=== PATIENT | female | born 1985 | race Caucasian/White ===

== ENCOUNTER → 2022-08-03 12:49 | Outpatient (BNVA) | payer MEDICAID, SELFPAY | PROVIDERS: PCP Nurse Practitioner Family; Visit Provider Internal Medicine Rheumatology | DX: M05.9 Rheumatoid arthritis with rheumatoid factor, unspecified (principal) | CPT/HCPCS: 99212 ==

== ENCOUNTER → 2022-12-03 09:48 | Outpatient (BNVA) | payer OTHER, SELFPAY | PROVIDERS: PCP Nurse Practitioner Family; Visit Provider Internal Medicine Rheumatology | DX: M06.329 Rheumatoid nodule, unspecified elbow (principal); M05.9 Rheumatoid arthritis with rheumatoid factor, unspecified; Z79.60 Long term (current) use of unspecified immunomodulators and immunosuppressants | CPT/HCPCS: 99212 ==

== ENCOUNTER 2023-05-13 09:55 | Outpatient (AMB) | payer OTHER, SELFPAY ==
--- NOTE | 2023-05-13 09:56 | MHC.OFFVIS ---
Intake Vital Signs 05/13/23 09:57 Height 5 ft 5 in Weight 203 lb 4.259 oz BMI 33.8 BP 138/76 Blood Pressure Location Lt brachial Position Sitting Pulse 91 Pulse Source Pulse Oximeter Pulse Oximetry (%) 100 Oxygen Delivery Method Room Air Intake Visit Reasons: rheum Intake Note: Patient presents today to follow up on RA. Mica Patcher Required: No Accompanied by: Self / Same As Patient Allergies spironolactone Allergy (Severe, Verified 05/13/23 10:08) kidney failure diphenhydramine [From Benadryl] Allergy (Intermediate, Verified 05/13/23 10:08) sinus headaches caffeine [From Cafergot] Allergy (Unknown, Verified 05/13/23 10:08) Unknown ergotamine [From Cafergot] Allergy (Unknown, Verified 05/13/23 10:08) Unknown latex Adverse Reaction (Intermediate, Verified 05/13/23 10:08) Unknown nortriptyline Adverse Reaction (Intermediate, Verified 05/13/23 10:08) Unknown Oral allergy syndrome Adverse Reaction (Unknown, Uncoded 12/03/22 10:08) Itching Medication List - Last Reconciled 05/13/23 by Luis Frank MD dextroamphetamine-amphetamine 15 mg ER (Adderall XR) 1 cap PO QAM epinephrine IM etanercept (Enbrel SureClick) 50 mg subcut QWEEK naproxen sodium (Aleve) 220 - 440 mg PO BID PRN HPI HPI Comments History of Present Illness Details The patient returns for evaluation of her rheumatoid arthritis. She remains on Enbrel 50 mg weekly. In general this has been doing fairly well to control her symptoms. She does note occasional pain in the wrists when she uses her hands vigorously. She has been having some catching and pain along the right 3rd finger flexor tendon. Earlier this fall she had removal of a painful rheumatoid nodule from the right olecranon region. That has healed up fairly well with a small keloid but it is not painful anymore. There has been some popping and pain over the left TMJ. She has been told in the past she had a ear infection but does note that the pain is intermittent even when the ear exam has looked okay. She continues full-time work at the [employer] [facility]. Occasionally she takes naproxen for pain but in general does not need it. 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 Endo Details: Negative for polyuria and polydypsia Jimmie/Lymph Details: Negative for excessive bruising or bleeding. Physical Exam Vital Signs: Last Vital Signs Pulse 91 05/13/23 09:57 BP 138/76 05/13/23 09:57 Pulse Ox 100 05/13/23 09:57 Oxygen Delivery Method Room Air 05/13/23 09:57 BMI result Body Mass Index 33.8 APPEARANCE: Patient in no acute distress EYES no redness, pupils equal and reactive to light, eyelids normal EXTREMITIES: No edema, no calf tenderness, normal peripheral pulses. JOINT EXAM: Cervical Spine:.? Full range of motion without pain; no tenderness. There is tenderness at the left TMJ. The ear canal and drum are not red so this is likely some irritation at the TMJ. Given the lack of inflammatory symptoms elsewhere this is probably some secondary degenerative change. I think she should follow-up with her dentist about potential treatment for that. Injection or arthroplasty are usually handled through an oral or dental surgeon. Thoracic Spine:.? No scoliosis.? No tenderness on palpation. Lumbar Spine:.? Alignment normal.? Full range of motion with mild discomfort.? No tenderness. Chest Wall:? No tenderness, swelling, increased warmth or erythema. Hands:? Right:? There is mild swelling at the 1st 3 MCPs; the 3rd MCP is slightly tender. There is some nontender thickening at the 2nd and 3rd PIP joints.? There is some thickening, tenderness, and triggering along the 3rd flexor tendon. Elsewhere there is no tendon triggering or tenderness.? No thenar atrophy or sensory loss.? Left:? Mild swelling without tenderness at the 1st, 2nd, and 5th MCP.? Other joints do not seem to have any swelling or tenderness. Wrists:? Right:? She flexes 60 degrees and extends 45 degrees at the wrist but has some mild pain with that motion.? No tenderness or swelling.? There is also pain with attempts at full supination and pronation.? She lacks about 40 degrees of full pronation.? Left:? Mild pain with flexion extension at 45 degrees with some slight tenderness but no swelling.? This wrist also lacks about 45 degrees/of supination pronation. Elbows:.? Right:? Range of motion seems to be intact and pain-free.? There is a well-healed scar with some prominence to it over the bursa. It is not tender, red, or fluctuant. There is no tenderness over the joint space. Left:? Normal pain-free range of motion without tenderness, swelling, increased warmth or erythema. Shoulders:.?? Full range of motion with mild discomfort at the extremes of full rotation.? No adenopathy, tenderness, weakness, swelling, increased warmth or erythema. Hips:.? Full range of motion without pain. Hip bursa:.? No tenderness. Knees:.? ? Mild patellofemoral crepitus pain-free range of motion.? There is some minimal medial compartment tenderness without redness or swelling.?? Ankles:.? Normal pain-free range of motion without tenderness, swelling, increased warmth or erythema. Feet:.? Left:? Some pes planus deformity and some valgus deformity.? Slight tenderness in the lateral instep without swelling. There is no tenderness in the MTP or toe regions. swelling.? Right:? Normal pain-free range of motion without tenderness, swelling, increased warmth or erythema. Tender points:.? No tenderness to digital palpation at the occiput, trapezius, second rib, lateral epicondyle, knees, greater trochanter and gluteal area bilaterally. ? ? Results Reviewed Results Reviewed: 05/03/2023: Hemoglobin 11.1, white count 9.3 Assessment & Plan Assessment & Plan (1) Flexor tenosynovitis of finger: Code(s): M65.9 - Synovitis and tenosynovitis, unspecified (2) Long-term use of immunosuppressant medication: Code(s): Z79.60 - it service technician (current) use of unspecified immunomodulators and immunosuppressants (3) Seropositive rheumatoid arthritis: Comment: Diagnosed as child at [facility]; RF, CCP, CARLOS all positive. Rx with methotrexate and cyclosporin: not that helpful. Rx with Enbrel (1998) age [age], did better. then off due to . Brief courses of Enbrel 2009 and 2013. She stopped on her own because she felt better. 09/2017: erosive disease in wrists and feet on xray - Enbrel restarted Code(s): M05.9 - Rheumatoid arthritis with rheumatoid factor, unspecified Plan Rheumatoid arthritis with some limited motion in a few joints consistent with longstanding and destructive disease. In general however she is pretty comfortable with current regimen. However there is some flexor tenosynovitis that is quite symptomatic at the right 3rd finger. I told her this could be surgically treated or injected but I would prefer surgical treatment given her longstanding rheumatoid disease that may give her more definitive treatment. She had a good response to the olecranon bursa rheumatoid nodule removal. She is referred to [facility] to deal with the finger. Her ear canal and drum are not red so this ear pain is likely some irritation at the TMJ. Given the lack of inflammatory symptoms elsewhere this is probably some secondary degenerative change. I think she should follow-up with her dentist about potential treatment for that. Injection or arthroplasty are usually handled through an oral or dental surgeon. She will continue with the Enbrel as above and we will see her back in about 6 months. Orders: Referrals Orthopedics Referral M65.9 - Synovitis and tenosynovitis, unspecified Coding Level of Care Code Est Pt Level 3 (51433) Diagnoses Flexor tenosynovitis of finger M65.9 Long-term use of immunosuppressant medication Z79.60 Seropositive rheumatoid arthritis M05.9
[2023-05-13 09:57] VITALS: BP 138/76; PULSE 91; O2SAT 100; BMI 33.8
== END 2023-05-13 10:53 | disposition home or self-care (01) ==
PROVIDERS: PCP Nurse Practitioner Family; Visit Provider Internal Medicine Rheumatology
DX: M05.79 Rheumatoid arthritis with rheumatoid factor of multiple sites without organ or systems involvement (principal); M65.9 Synovitis and tenosynovitis, unspecified; Z79.60 Long term (current) use of unspecified immunomodulators and immunosuppressants
CPT/HCPCS: 99213

== ENCOUNTER → 2023-05-13 09:55 | Outpatient (BNVA) | payer OTHER, SELFPAY | PROVIDERS: PCP Nurse Practitioner Family; Visit Provider Internal Medicine Rheumatology | DX: M05.9 Rheumatoid arthritis with rheumatoid factor, unspecified (principal); M65.9 Synovitis and tenosynovitis, unspecified; Z79.60 Long term (current) use of unspecified immunomodulators and immunosuppressants | CPT/HCPCS: 99212 ==

== ENCOUNTER 2023-11-15 07:45 | Outpatient (AMB) | payer OTHER, SELFPAY ==
--- NOTE | 2023-11-15 07:47 | A.OFFVIS_ITS ---
Vital Signs 11/15/23 07:48 Height 5 ft 5 in Weight 206 lb 5.643 oz BMI 34.3 BP 124/80 Blood Pressure Location Rt brachial Position Sitting Pulse 89 Pulse Source Pulse Oximeter Pulse Oximetry (%) 100 Intake Visit Reasons: RA Intake Note: Patient last seen 05/13/[address] Frank, presents today for follow up and test results. Allergies spironolactone Allergy (Severe, Verified 11/15/23 07:50) kidney failure diphenhydramine [From Benadryl] Allergy (Intermediate, Verified 11/15/23 07:50) sinus headaches caffeine [From Cafergot] Allergy (Unknown, Verified 11/15/23 07:50) Unknown ergotamine [From Cafergot] Allergy (Unknown, Verified 11/15/23 07:50) Unknown latex Adverse Reaction (Intermediate, Verified 11/15/23 07:50) Unknown nortriptyline Adverse Reaction (Intermediate, Verified 11/15/23 07:50) Unknown Oral allergy syndrome Adverse Reaction (Unknown, Uncoded 11/15/23 07:50) Itching Medication List - Last Reconciled 11/15/23 by Alecia Leyva MD dextroamphetamine-amphetamine 15 mg ER (Adderall XR) 1 cap PO QAM Enbrel SureClick (etanercept) 50 mg subcut QWEEK NS epinephrine IM naproxen sodium (Aleve) 220 - 440 mg PO BID PRN HPI Comments Details: 38-year-old female with deforming RA returns for follow-up. She remains on Enbrel weekly. She states that she is getting more pains recently. She feels that the Enbrel is not as effective as it used to be. 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 She has pain in her hands, she also gets significant pain after running or walking for some time. She states that her pains are about 80% better when she has not working. She takes ibuprofen 100 mg Twice daily daily. Has not had any recent infections. She uses a mask at work. Most recent visit by Dr. Frank 04/2024: The patient returns for evaluation of her rheumatoid arthritis. She remains on Enbrel 50 mg weekly. In general this has been doing fairly well to control her symptoms. She does note occasional pain in the wrists when she uses her hands vigorously. She has been having some catching and pain along the right 3rd finger flexor tendon. Earlier this fall she had removal of a painful rheumatoid nodule from the right olecranon region. That has healed up fairly well with a small keloid but it is not painful anymore. There has been some popping and pain over the left TMJ. She has been told in the past she had a ear infection but does note that the pain is intermittent even when the ear exam has looked okay. She continues full-time work at the [employer] [facility]. Occasionally she takes naproxen for pain but in general does not need it. 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[facility] [place] Reports arthralgias, Reports joint swelling and Reports stiffness Physical Exam Vital Signs: Last Vital Signs Pulse 89 11/15/23 07:48 BP 124/80 11/15/23 07:48 Pulse Ox 100 11/15/23 07:48 BMI result Body Mass Index 34.3 Const General: cooperative, healthy appearing and comfortable Nutritional Appearance: obese Orientation/consciousness: patient oriented x3 Limitations: no limitations HEENT Head: Yes normocephalic and Yes atraumatic Mouth: moist mucous membranes Resp Effort & Inspection: normal respiratory effort and able to speak in complete sentences Auscultation: clear to auscultation bilaterally Cardio Rate: regular rate Rhythm: regular rhythm Skin General skin exam: no rashes or lesions noted Neuro General: patient oriented x3 Extrem Other: Hands:? Right:? There is mild swelling at the 1st 3 MCPs; the 3rd MCPs slightly tender. There is some nontender thickening at the 2nd and 3rd PIP joints.? There is some thickening, tenderness, and triggering along the 3rd flexor tendon. Elsewhere there is no tendon triggering or tenderness.? No thenar atrophy or sensory loss.? Left:? Mild swelling without tenderness at the 1st, 2nd, and 5th MCP.? Other joints do not seem to have any swelling or tenderness. Wrists:? Right:? She flexes 60 degrees and extends 45 degrees at the wrist but has some mild pain with that motion.? No tenderness or swelling.? There is also pain with attempts at full supination and pronation.? She lacks about 40 degrees of full pronation.? Left:? Mild pain with flexion extension at 45 degrees with some slight tenderness but no swelling.? This wrist also lacks about 45 degrees/of supination pronation. Elbows:.? Right:? Range of motion seems to be intact and pain-free.? There is a well-healed scar with some prominence to it over the bursa. It is not tender, red, or fluctuant. There is no tenderness over the joint space. There seems to be a rheumatoid nodule Left:? Normal pain-free range of motion without tenderness, swelling, increased warmth or erythema. Knees without warmth erythema or swelling No knee pain with full flexion and extension Assessment & Plan Assessment & Plan (1) Seropositive rheumatoid arthritis: Comment: Diagnosed as child at [facility]; RF, CCP, CARLOS all positive. Rx with methotrexate and cyclosporin: not that helpful. Rx with Enbrel (1998) age [age], did better. then off due to . Brief courses of Enbrel 2009 and 2013. She stopped on her own because she felt better. 09/2017: erosive disease in wrists and feet on xray - Enbrel restarted Code(s): M05.9 - Rheumatoid arthritis with rheumatoid factor, unspecified Category: Medical Plan: This is a 38-year-old female with seropositive deforming RA who presents for follow-up. This is her 1st visit with me she used to follow-up with Dr. Frank. Patient is complaining of multiple joint pains that are needed to activity. She is using ibuprofen 400 mg Twice daily Patient already has deforming disease and this can predispose her to arthritic pains with activity. Versus active inflammatory arthritis. Continue with Enbrel Re-evaluate in 3 months. Labs before next visit (2) Long-term use of immunosuppressant medication: Code(s): Z79.60 - FPC (current) use of unspecified immunomodulators and immunosuppressants Category: Medical Plan: No recent infections. Will check T spot, hepatitis panel before next visit Plan I spent 26 minutes reviewing patient's chart, evaluating patient, ordering diagnostic workup, counseling patient and documenting in the chart Coding Level of Care Code Est Pt Level 4 (35015) Diagnoses Seropositive rheumatoid arthritis M05.9 Long-term use of immunosuppressant medication Z79.60
[2023-11-15 07:48] VITALS: BP 124/80; PULSE 89; O2SAT 100; BMI 34.3
== END 2023-11-15 08:11 | disposition home or self-care (01) ==
PROVIDERS: PCP Nurse Practitioner Family; Visit Provider Student in an Organized Health Care Education/Training Program
DX: M05.79 Rheumatoid arthritis with rheumatoid factor of multiple sites without organ or systems involvement (principal); Z79.60 Long term (current) use of unspecified immunomodulators and immunosuppressants
CPT/HCPCS: 99214

== ENCOUNTER → 2023-11-15 07:45 | Outpatient (BNVA) | payer OTHER, SELFPAY | PROVIDERS: PCP Nurse Practitioner Family; Visit Provider Student in an Organized Health Care Education/Training Program | DX: M05.9 Rheumatoid arthritis with rheumatoid factor, unspecified (principal); Z79.60 Long term (current) use of unspecified immunomodulators and immunosuppressants | CPT/HCPCS: 99212 ==

== ENCOUNTER 2024-02-15 08:12 | Outpatient (AMB) | payer OTHER, SELFPAY ==
--- NOTE | 2024-02-15 08:20 | MHC.OFFVIS ---
Vital Signs 02/15/24 08:22 Height 5 ft 5 in Weight 200 lb 9.93 oz BMI 33.4 BP 124/72 Blood Pressure Location Rt brachial Position Sitting Pulse 85 Pulse Source Pulse Oximeter Pulse Oximetry (%) 100 Oxygen Delivery Method Room Air Intake Visit Reasons: RA Intake Note: Patient presents for RA. Allergies spironolactone Allergy (Severe, Verified 02/15/24 08:23) kidney failure diphenhydramine [From Benadryl] Allergy (Intermediate, Verified 02/15/24 08:23) sinus headaches caffeine [From Cafergot] Allergy (Unknown, Verified 02/15/24 08:23) Unknown ergotamine [From Cafergot] Allergy (Unknown, Verified 02/15/24 08:23) Unknown latex Adverse Reaction (Intermediate, Verified 02/15/24 08:23) Unknown nortriptyline Adverse Reaction (Intermediate, Verified 02/15/24 08:23) Unknown Oral allergy syndrome Adverse Reaction (Unknown, Uncoded 11/15/23 07:50) Itching Medication List - Last Reconciled 02/15/24 by Alecia Leyva MD dextroamphetamine-amphetamine 15 mg ER (Adderall XR) 1 cap PO QAM Enbrel SureClick (etanercept) 50 mg subcut QWEEK NS epinephrine IM naproxen sodium (Aleve) 220 - 440 mg PO BID PRN HPI Comments Details: 38-year-old female with seropositive deforming RA returns for follow-up. She remains on Enbrel weekly. She states that her joints have been doing reasonably well. She has noticed some tingling and numbness on the outer aspect of her left elbow that travels to the ulnar aspect of her hand. She states that her left 5th finger gets stuck. She has difficulty drawing blood. 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 Most recent visit by Dr. Frank 04/2024: The patient returns for evaluation of her rheumatoid arthritis. She remains on Enbrel 50 mg weekly. In general this has been doing fairly well to control her symptoms. She does note occasional pain in the wrists when she uses her hands vigorously. She has been having some catching and pain along the right 3rd finger flexor tendon. Earlier this fall she had removal of a painful rheumatoid nodule from the right olecranon region. That has healed up fairly well with a small keloid but it is not painful anymore. There has been some popping and pain over the left TMJ. She has been told in the past she had a ear infection but does note that the pain is intermittent even when the ear exam has looked okay. She continues full-time work at the [employer] [facility]. Occasionally she takes naproxen for pain but in general does not need it. 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 of motion, Reports radiating pain into limb and Reports stiffness Physical Exam Vital Signs: Last Vital Signs Pulse 85 02/15/24 08:22 BP 124/72 02/15/24 08:22 Pulse Ox 100 02/15/24 08:22 Oxygen Delivery Method Room Air 02/15/24 08:22 BMI result Body Mass Index 33.4 Const General: cooperative, healthy appearing and comfortable Nutritional Appearance: obese Orientation/consciousness: patient oriented x3 Limitations: no limitations HEENT Head: Yes normocephalic and Yes atraumatic Mouth: moist mucous membranes Resp Effort & Inspection: normal respiratory effort and able to speak in complete sentences Auscultation: clear to auscultation bilaterally Cardio Rate: regular rate Rhythm: regular rhythm Skin General skin exam: no rashes or lesions noted Neuro General: patient oriented x3 Extrem Other: Hands:? Right:? There is synovial thickening at the 1st 3 MCP joints. There is some nontender thickening at the 2nd and 3rd PIP joints.? Elsewhere there is no tendon triggering or tenderness.? No thenar atrophy or sensory loss.? Left:? Synovial thickening at multiple MCP joints Left index finger triggering Wrists: Reduced range of motion of both wrists Soft tissue prominence at the right elbow, likely a rheumatoid nodule Knees without warmth erythema or swelling No knee pain with full flexion and extension Office Procedures Tendon Injection Tendon Injection Details: With patient's consent, The palm of the left hand was prepped with ChloraPrep and alcohol. Under topical ethyl chloride spray the [2nd] flexor tendon sheath was injected with 20 mg of triamcinolone and 0.2 cc of 1% lidocaine. The patient tolerated the procedure without any acute complications. [id number] Tendon Sheath Injection All charges added?: Procedure code (CPT) selection complete Assessment & Plan Assessment & Plan (1) Seropositive rheumatoid arthritis: Comment: Diagnosed as child at [facility];+++ RF+++ CCP+++CARLOS all positive. Rx with methotrexate and cyclosporin: not that helpful. Rx with Enbrel (1998) age [age], did better. then off due to . Brief courses of Enbrel 2009 and 2013. She stopped on her own because she felt better. 09/2017: erosive disease in wrists and feet on xray - Enbrel restarted Code(s): M05.9 - Rheumatoid arthritis with rheumatoid factor, unspecified Category: Medical Plan: This is a 38-year-old female with seropositive deforming RA who presents for follow-up. She remains on Enbrel weekly. She does not have any active synovitis on exam. Continue Enbrel 50 mg once weekly Labs today. Follow-up in 4 months (2) Long-term use of immunosuppressant medication: Code(s): Z79.60 - penitentiary (current) use of unspecified immunomodulators and immunosuppressants Category: Medical Plan: No recent infections. Will check T spot, hepatitis panel (3) Flexor tenosynovitis of finger: Code(s): M65.9 - Synovitis and tenosynovitis, unspecified Category: Medical Plan: History of right 3rd trigger finger, was injected multiple times, initially injections were helpful then stopped helping, eventually she required surgery Similar symptoms now occurring in the left index. It was injected in clinic today. Advised patient to wear a Band-Aid on the PIP joint at night (4) Paresthesia of left upper limb: Code(s): R20.2 - Paresthesia of skin Category: Medical Plan: Symptoms suggestive of left cubital tunnel syndrome. Will order EMG/NCV of both upper extremities Plan I spent 46 minutes reviewing patient's chart, evaluating patient, ordering diagnostic workup, counseling patient and documenting in the chart Orders: Orders NE electromyogram (EMG) Today R20.2 - Paresthesia of skin AMB Tendon Injection Today M65.9 - Synovitis and tenosynovitis, unspecified Medications: Refilled Enbrel SureClick (etanercept) 50 mg subcut QWEEK 4 mL 5RF NS M05.9 - Rheumatoid arthritis with rheumatoid factor, unspecified Coding Level of Care Code Est Pt Level 5 (23211) Diagnoses Seropositive rheumatoid arthritis M05.9 Long-term use of immunosuppressant medication Z79.60 Flexor tenosynovitis of finger M65.9 Paresthesia of left upper limb R20.2 CPT Codes Tendon Injection - Tendon Injection 1: [id number] Tendon Sheath Injection ([id number])
[2024-02-15 08:22] VITALS: BP 124/72; PULSE 85; O2SAT 100; BMI 33.4
== END 2024-02-15 08:47 | disposition home or self-care (01) ==
PROVIDERS: PCP Nurse Practitioner Family; Visit Provider Student in an Organized Health Care Education/Training Program
DX: M05.79 Rheumatoid arthritis with rheumatoid factor of multiple sites without organ or systems involvement (principal); Z79.60 Long term (current) use of unspecified immunomodulators and immunosuppressants; M65.9 Synovitis and tenosynovitis, unspecified; R20.2 Paresthesia of skin; M65.322 Trigger finger, left index finger
CPT/HCPCS: 20550; 99215

== ENCOUNTER → 2024-02-15 08:12 | Outpatient (BNVA) | payer OTHER, SELFPAY | PROVIDERS: PCP Nurse Practitioner Family; Visit Provider Student in an Organized Health Care Education/Training Program | DX: M05.9 Rheumatoid arthritis with rheumatoid factor, unspecified (principal); M65.9 Synovitis and tenosynovitis, unspecified; R20.2 Paresthesia of skin; Z79.60 Long term (current) use of unspecified immunomodulators and immunosuppressants | CPT/HCPCS: 20550; 99212 ==

== ENCOUNTER 2024-02-15 08:51 | Outpatient (REF) | payer OTHER, SELFPAY ==
[2024-02-15 11:01] LABS: MANUAL DIFF FLAG NO
[2024-02-15 11:03] LABS: Basophils Percent Auto 0.3 % (0-2); Eosinophils Absolute Auto 0.1 X10*3/uL (0.0-0.4); Eosinophils Percent Auto 1.3 % (0-4); Hematocrit 38.6 % (37.0-47.0); Hemoglobin 11.9 g/dl (12.0-16.0); Imm Gran Abs Auto 0.01 X10*3/uL (0.00-0.03); Imm Gran Pct Auto 0.1 % (0.0-0.4); Lymphocytes Absolute Auto 1.5 X10*3/uL (1.2-4.9); Lymphocytes Percent Auto 21.8 % (20-40); Mean Corpuscular HGB Conc 30.8 g/dl (31.0-35.0); Mean Corpuscular Hemoglobin 23.9 pg (27.0-33.0); Mean Corpuscular Volume 77.5 fL (80.0-98.0); Monocytes Absolute Auto 0.5 X10*3/uL (0.1-1.2); Monocytes Percent Auto 6.8 % (2-11); Neutrophils Absolute Auto 4.7 x10*3/uL (2.0-8.3); Neutrophils Percent Auto 69.7 % (45-73); Platelet Count 289 X10*3/uL (160-400); Red Blood Count 4.98 X10*6/uL (4.20-5.50); Red Cell Distribution Width 16.1 % (11.0-16.0); White Blood Count 6.8 X10*3/uL (4.8-10.8)
[2024-02-15 11:21] LABS: Alanine Aminotransferase 15 U/L (0-31); Albumin Level 4.1 g/dL (3.5-5.0); Alkaline Phosphatase 58 U/L (39-117); Anion Gap 11 (12-20); Aspartate Amino Transferase 17 U/L (5-31); Bilirubin Total 0.5 mg/dL (0.0-1.0); Blood Urea Nitrogen 13 mg/dL (9-16); C Reactive Protein 0.37 mg/dL (< or = 0.50); Calcium 9.6 mg/dL (8.4-10.2); Carbon Dioxide 25 mmol/L (22-29); Chloride 108 mmol/L (96-108); Estimated Glomerular Filt Rate > 60; Glucose Random 100 mg/dL (60-115); Potassium 4.2 mmol/L (3.3-5.1); Sodium 140 mmol/L (135-145); Total Protein 7.5 g/dL (6.5-8.0)
[2024-02-15 11:41] LABS: HBS Num1 120.64 mIU/mL (0-7.99); HBc Num1 0.16 S/CO (0.00-0.79); HBsAGNum1 0.27 S/CO (0.00-0.99); Hepatitis B Core Antibody Nonreactive (Nonreactive); Hepatitis B Surface Antigen Negative (Negative); ~Hepatitis A Antibody IgM Nonreactive (Nonreactive); ~Hepatitis B Surface Antibody REACTIVE (Nonreactive); ~Hepatitis C Antibody Nonreactive (Nonreactive)
[2024-02-15 11:44] LABS: Erythrocyte Sedimentation Rate 25 MM/HR (0-20)
[2024-02-18 00:49] LABS: TS Negative Control Passed; TS Panel A 0; TS Panel B 0; TS Positive Control Passed; TSpotTB Negative (Negative)
== END 2024-02-15 08:52 | disposition home or self-care (01) ==
LOC: HO.10HDL 08:51
PROVIDERS: Visit Provider Student in an Organized Health Care Education/Training Program
DX: Z11.59 Encounter for screening for other viral diseases (principal); M05.9 Rheumatoid arthritis with rheumatoid factor, unspecified; R76.11 Nonspecific reaction to tuberculin skin test without active tuberculosis
CPT/HCPCS: 36415; 80053; 85025; 85652; 86140; 86481; 86704; 86706; 86709; 86803; 87340

== ENCOUNTER 2024-03-02 13:52 | Outpatient (REF) | payer OTHER, SELFPAY ==
--- NOTE | 2024-03-02 | EMG_ITS ---
Chief complaint: Left 4th and 5th digit numbness/tingling/pain especially when bending the left elbow. Milder symptoms on right but similar. History of RA. Reason for referral: Evaluate for ulnar neuropathy Referred by: Dr. Leyva Procedure done: Bilateral upper extremities NCS/EMG Precautions and/or limitations: None The limb temperature was monitored continuously and remained between 32-36 degrees C during the performance of the NCS. Nerve Conduction Studies Anti Sensory Summary Table ?Stim Site NR Onset (ms) Norm Onset (ms) Peak (ms) Norm Peak (ms) O-P Amp (?V) Norm O-P Amp Site1 Site2 Delta-0 (ms) Dist (cm) Roque (m/s) Norm Roque (m/s) Left Median Anti Sensory (2nd Digit) Wrist ? 2.2 2.8 <3.6 71.4 >10 Wrist 2nd Digit 2.2 14.0 64 Right Median Anti Sensory (2nd Digit) Wrist ? 2.1 2.7 <3.6 82.5 >10 Wrist 2nd Digit 2.1 14.0 67 Left Radial Anti Sensory (Thumb) Forearm ? 1.6 1.9 <3.1 20.5 Forearm Thumb 1.6 0.0 Left Ulnar Anti Sensory (5th Digit) Wrist ? 2.1 2.7 <3.7 58.4 >15.0 Wrist 5th Digit 2.1 14.0 67 Right Ulnar Anti Sensory (5th Digit) Wrist ? 2.1 2.8 <3.7 48.1 >15.0 Wrist 5th Digit 2.1 14.0 67 Motor Summary Table ?Stim Site NR Onset (ms) Norm Onset (ms) O-P Amp (mV) Norm O-P Amp iAmp (mV) Amp (1st) (%) Site1 Site2 Delta-0 (ms) Dist (cm) Roque (m/s) Norm Roque (m/s) Left Median Motor (Abd Poll Brev) Wrist ? 3.0 <3.9 10.2 >4.5 11.9 100.0 Elbow Wrist 3.7 20.0 54 >45 Elbow ? 6.7 10.3 12.0 101.0 Right Median Motor (Abd Poll Brev) Wrist ? 3.0 <3.9 8.8 >4.5 10.5 100.0 Elbow Wrist 3.4 20.0 59 >45 Elbow ? 6.4 8.8 10.6 100.0 Left Ulnar Motor (Abd Dig Minimi) Wrist ? 2.5 <3.0 7.6 >5 8.8 100.0 B Elbow Wrist 2.7 16.5 61 >45 B Elbow ? 5.2 5.7 7.0 75.0 A Elbow B Elbow 1.5 10.0 67 >45 A Elbow ? 6.7 5.6 6.9 73.7 Right Ulnar Motor (Abd Dig Minimi) Wrist ? 2.6 <3.0 8.6 >5 10.6 100.0 B Elbow Wrist 2.9 18.5 64 >45 B Elbow ? 5.5 6.2 8.1 72.1 A Elbow B Elbow 1.7 10.0 59 >45 A Elbow ? 7.2 6.1 8.1 70.9 EMG ?Side Muscle Nerve Root Ins Act Fibs Psw Amp Dur Poly Recrt Int Pat Comment Right 1stDorInt Ulnar C8-T1 Nml Nml Nml Nml Nml 0 Nml Complete Right FlexCarRad Median C6-7 Nml Nml Nml Nml Nml 0 Nml Complete Right Biceps Musculocut C5-6 Nml Nml Nml Nml Nml 0 Nml Complete Right Triceps Radial C6-7-8 Nml Nml Nml Nml Nml 0 Nml Complete Right Deltoid Axillary C5-6 Nml Nml Nml Nml Nml 0 Nml Complete Left 1stDorInt Ulnar C8-T1 Nml Nml Nml Nml Nml 0 Nml Complete Left FlexCarRad Median C6-7 Nml Nml Nml Nml Nml 0 Nml Complete Left Biceps Musculocut C5-6 Nml Nml Nml Nml Nml 0 Nml Complete Left Triceps Radial C6-7-8 Nml Nml Nml Nml Nml 0 Nml Complete Left Deltoid Axillary C5-6 Nml Nml Nml Nml Nml 0 Nml Complete FINDINGS: All motor and sensory nerves tested showed normal latencies, amplitudes and conduction velocities. Concentric needle EMG was performed in selected muscles of the bilateral upper extremities. Study did not reveal signs of electric abnormalities as shown in the table above. IMPRESSION: 1. This is a normal study. 2. There is no electrodiagnostic evidence for median neuropathy, ulnar neuropathy, brachial plexopathy, or cervical radiculopathy. Thank you for your kind referral. Roxanna Springer MD, KALYANI Board Certified, [place] [employer] and [employer] (ABPMR) Board Certified, [place] [employer] Electro[employer]ostic [employer] (ABEM) CODIN [phone] MTDD
== END 2024-03-02 13:53 | disposition home or self-care (01) ==
LOC: HO.NEURO 13:52
PROVIDERS: PCP Internal Medicine; Visit Provider Student in an Organized Health Care Education/Training Program
DX: R20.2 Paresthesia of skin (principal)
CPT/HCPCS: 95886; 95911

== ENCOUNTER → 2024-03-02 13:55 | Outpatient (BNV) | payer OTHER, SELFPAY | PROVIDERS: PCP Internal Medicine; Visit Provider Physical Medicine & Rehabilitation | DX: R20.0 Anesthesia of skin (principal); R20.2 Paresthesia of skin | CPT/HCPCS: 95886; 95911 ==

== ENCOUNTER 2024-06-20 09:14 | Outpatient (AMB) | payer OTHER, SELFPAY ==
--- NOTE | 2024-06-20 09:22 | MHC.OFFVIS ---
Vital Signs 06/20/24 09:24 06/20/24 09:26 Height 5 ft 5 in Weight 204 lb 5.896 oz 204 lb 5.896 oz BMI 34.0 BP 124/90 H Blood Pressure Location Lt brachial Pulse 97 Pulse Source Pulse Oximeter Pulse Oximetry (%) 98 Oxygen Delivery Method Room Air Intake Visit Reasons: RA Intake Note: Patient presents for RA. Allergies spironolactone Allergy (Severe, Verified 06/20/24 09:25) kidney failure diphenhydramine [From Benadryl] Allergy (Intermediate, Verified 06/20/24 09:25) sinus headaches caffeine [From Cafergot] Allergy (Unknown, Verified 06/20/24 09:25) Unknown ergotamine [From Cafergot] Allergy (Unknown, Verified 06/20/24:) Unknown latex Adverse Reaction (Intermediate, Verified 06/20/24 09:25) Unknown nortriptyline Adverse Reaction (Intermediate, Verified 06/20/24 09:25) Unknown Oral allergy syndrome Adverse Reaction (Unknown, Uncoded 11/15/23 07:50) Itching Medication List - Last Reconciled 06/20/24 by Gabbi Montoya MD dextroamphetamine-amphetamine 15 mg ER (Adderall XR) 1 cap PO QAM Enbrel SureClick (etanercept) 50 mg subcut QWEEK NS epinephrine IM naproxen sodium (Aleve) 220 - 440 mg PO BID PRN HPI Comments Details: Patient is a 39-year-old female with ADHD, asthma and seropositive erosive nodular rheumatoid arthritis here today for follow up Interval History: Patient last seen 02/15/[address] Leyva. At that time she remain on Enbrel weekly and reported her joints were doing reasonably well. She also had recurrent right 3rd trigger finger that was injected at that visit. Also complained of cubital tunnel syndrome symptoms and was sent to do an EMG of both upper extremities. Today, Reports she is doing well Trigger finger improved after injection No prolonged AM stiffness Rheumatologic History: Diagnosed as child at [facility];+++ RF+++ CCP+++CARLOS all positive. Rx with methotrexate and cyclosporin: not that helpful. Rx with Enbrel (1998) age 16-20, did better. then off due to . Brief courses of Enbrel 2009 and 2013. She stopped on her own because she felt better. 09/2017: erosive disease in wrists and feet on xray - Enbrel restarted Current Rheumatology Medication(s): Enbrel 50mg SC weekly [facility] Medical History Asthma Migraine Cervical cancer Nephrolithiasis Obstructive sleep apnea Obesity Cough Surgical History History of lymph node excision Family History Mother Fibromyalgia Hypertension Rheumatoid arthritis Lupus Diabetes Thyroid disease Glaucoma Father Gout Maternal Grandmother Cancer Diabetes Hypertension Myocardial infarct Social History Household Members: None Alcohol intake: current Patient Tobacco Use Status: Never used Tobacco Current occupational status: employed 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 [employer] Review of Systems Const Details: Review of Systems Constitutional: Denies fever, chills, weight loss ENT: Denies vision changes, eye pain or eye redness, dental caries, dry mouth GI: Denies nausea, vomiting, diarrhea, abdominal pain, change in BM Pulm: Denies SOB, HUTCHINS, hemoptysis, wheezing Cards: Denies chest pain, palpitations Skin: Denies Raynaud's, rash, nail changes, photosensitivity, [employer] ASSOC[employer]ATE: Denies headaches, weakness, paresthesias, recurrent falls MSK: as per HPI All other systems reviewed and are unremarkable except noted above Physical Exam Vital Signs: BMI result Body Mass Index 34.0 Vital signs reviewed Physical Examination CONSTITUITIONAL Patient alert and cooperative. Well appearing and in no apparent painful distress HEENT Conjunctiva and sclera clear. ?Pupils equal round and reactive to light. ?No lymphadenopathy. ? CHEST/RESPIRATORY SYSTEM Normal respiratory effort and able to speak in complete sentences. ?Clear to auscultation bilaterally. ?No crackles, rales, rhonchi, wheezes heard. CARDIAC SYSTEM Regular rate and rhythm. ?S1 and S2 heard no murmurs. 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 No deformities noted. ?No synovitis noted to the MCPs, PIPs or DIPs. ?No tenderness to palpation of these joints. Reducible swan neck deformity of the right 5th digit Wrists: ?Full range of motion at the wrists without pain. ?No tenderness to palpation or synovitis noted to the wrists. Elbows: Full range of motion without pain. No tenderness, weakness, swelling, increased warmth or erythema. Nodule palpated at the right elbow Shoulders: Full range of motion without pain. No tenderness, weakness, swelling, increased warmth or erythema. Hips: Full range of motion without pain. Hip bursa: No tenderness to palpation Knees: ?Full range of motion. ?No tenderness, swelling, increased warmth or erythema.?No effusion or crepitations Ankles: Full range of motion. ?No tenderness, swelling, increased warmth or erythema.? Feet: ?Negative squeeze test. ?No tenderness to palpation or swelling of the MTPs. Tender points:?No tenderness to palpation of the bilateral trapezius, supraspinatus, greater trochanters, anterior costochondral junctions, bilateral gluteal areas, bilateral suboccipital muscle insertions SKIN Skin intact without rashes. Results Reviewed Results Reviewed: Laboratory Tests 02/15/24 09:00 WBC 6.8 RBC 4.98 Hgb 11.9 L Hct 38.6 Plt Count 289 ESR 25 H Sodium 140 Potassium 4.2 Chloride 108 Carbon Dioxide 25 BUN 13 Creatinine 0.85 AST 17 ALT 15 Alkaline Phosphatase 58 C-Reactive Protein 0.37 Total Protein 7.5 Hepatitis A IgM Ab Nonreactive Hep Bs Antigen Negative Hep Bs Antibody REACTIVE Hep B Core Total Ab Nonreactive Hepatitis C Ab (EIA) Nonreactive TB Test (T-Spot) Com Negative EMG 02/2024 IMPRESSION: 1. This is a normal study. 2. There is no electrodiagnostic evidence for median neuropathy, ulnar neuropathy, brachial plexopathy, or cervical radiculopathy. Assessment & Plan Assessment & Plan (1) Seropositive rheumatoid arthritis: Comment: Diagnosed as child at [facility];+++ RF+++ CCP+++CARLOS all positive. Rx with methotrexate and cyclosporin: not that helpful. Rx with Enbrel (1998) age [age], did better. then off due to . Brief courses of Enbrel 2009 and 2013. She stopped on her own because she felt better. 09/2017: erosive disease in wrists and feet on xray - Enbrel restarted Code(s): M05.9 - Rheumatoid arthritis with rheumatoid factor, unspecified Category: Medical Plan: #Seropositive erosive nodular RA Patient is a 39-year-old female with seropositive erosive and nodular rheumatoid arthritis. Currently in remission. 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 of unspecified immunomodulators and immunosuppressants Category: Medical Plan: #Long-term Use of TNF Inhibitors: Enbrel Discussed with the patient the benefits and risks of TNF inhibitors for the management of the rheumatic condition Benefits include reduce pain, maintenance of remission and reduction of flares as well as ?progression of the disease Risks include injection sites/infusion reactions, serious infections (such as bacterial infections, opportunistic infections), malignancy, delaminating syndromes, autoimmune phenomena, CHF exacerbations, palmar plantar psoriasis and cytopenias Recommended rotating injection sites, and holding medication during and for up to 1 week after resolution of a febrile illness or open skin wound (3) Flexor tenosynovitis of finger: Code(s): M65.9 - Synovitis and tenosynovitis, unspecified Category: Medical Plan: #Flexor tenosynovitis of right 3rd digit Improved post injection (4) Paresthesia of left upper limb: Code(s): R20.2 - Paresthesia of skin Category: Medical Plan: #Upper limb paresthesia Normal EMG Likely situational compression of the ulnar nerve Recommended to not place pressure on the elbow Plan I spent 30 minutes reviewing the record and labs, taking a history, examining the patient, discussing the treatment plan and documenting in the medical record Orders: Orders C Reactive Protein 4 Months M05.9 - Rheumatoid arthritis with rheumatoid factor, unspecified Erythrocyte Sedimentation Rate 4 Months M05.9 - Rheumatoid arthritis with rheumatoid factor, unspecified Complete Blood Count Auto Diff Today M05.9 - Rheumatoid arthritis with rheumatoid factor, unspecified C Reactive Protein Today M05.9 - Rheumatoid arthritis with rheumatoid factor, unspecified XR foot RT min 3V Today M05.9 - Rheumatoid arthritis with rheumatoid factor, unspecified XR knee standing BI Today M05.9 - Rheumatoid arthritis with rheumatoid factor, unspecified XR knee LT 3V Today M05.9 - Rheumatoid arthritis with rheumatoid factor, unspecified Complete Blood Count Auto Diff 4 Months M05.9 - Rheumatoid arthritis with rheumatoid factor, unspecified Comprehensive Met. Panel 4 Months M05.9 - Rheumatoid arthritis with rheumatoid factor, unspecified Hepatitis A,B,C Profile 4 Months M05.9 - Rheumatoid arthritis with rheumatoid factor, unspecified T Spot TB 4 Months M05.9 - Rheumatoid arthritis with rheumatoid factor, unspecified Comprehensive Met. Panel Today M05.9 - Rheumatoid arthritis with rheumatoid factor, unspecified Erythrocyte Sedimentation Rate Today M05.9 - Rheumatoid arthritis with rheumatoid factor, unspecified XR hand wrist LT Today M05.9 - Rheumatoid arthritis with rheumatoid factor, unspecified XR hand wrist RT Today M05.9 - Rheumatoid arthritis with rheumatoid factor, unspecified XR foot LT min 3V Today M05.9 - Rheumatoid arthritis with rheumatoid factor, unspecified XR knee RT 3V Today M05.9 - Rheumatoid arthritis with rheumatoid factor, unspecified XR cervical spine w flex/ext Today M05.9 - Rheumatoid arthritis with rheumatoid factor, unspecified Medications: Refilled Enbrel SureClick (etanercept) 50 mg subcut QWEEK 4 mL 5RF NS M05.9 - Rheumatoid arthritis with rheumatoid factor, unspecified Coding Level of Care Code New Pt Level 4 (93448) Complex EM visit Add On G2211 Diagnoses Seropositive rheumatoid arthritis M05.9 Long-term use of immunosuppressant medication Z79.60 Flexor tenosynovitis of finger M65.9 Paresthesia of left upper limb R20.2
[2024-06-20 09:26] VITALS: BP 124/90; PULSE 97; O2SAT 98; BMI 34.0
--- OUTSIDE RECORDS SUMMARY | 2024-06-20 09:51 | XMS_ITS | Data Portability ---
Author Organization [place] - [facility], Allergy Address [address] [address] Care Team Providers Care Security Door Installer Name Role Phone GAEL BEAVERS Primary Care Provider Assessment Encounter Date Assessment Date Assessment LastModified by Organization Details LastModified Time 11/22/2023 11/22/2023 Patient has sleep study upcoming in February 2024. I would anticipate there is some sleep apnea given her description of snoring and her recent weight gain. 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 Lab None record ed. Referral None record ed. Procedures None record ed. Surgeries None record ed. Imaging None record ed. Medication Orders None record ed. Patient TargetsNo targets recorded. Patient InstructionsNo instructions recorded. Reason for Referral None Reported. Results Created Date Observation Date Name Description Value Unit Range Abnormal Flag Note LastModifiedBy Organization Detail LastModifiedTime 01/19/2006/28/2023 imagi ng/di agnos tic resul t No observ ation record ed. [email or web address] Not Available 03:01:27 01/19/20 24 07/30/2021 imagi ng/di agnos tic resul t No observ ation record ed. [email or web address] Not Available 03:01:39 01/19/20 24 07/30/2021 imagi ng/di agnos tic resul t No observ ation record ed. [email or web address] Not Available 03:01:46 01/19/20 24 08/06/2021 imagi ng/di agnos tic resul t No observ ation record ed. [email or web address] Not Available 03:02:06 01/19/20 24 08/06/2021 imagi ng/di agnos tic resul t No observ ation record ed. [email or web address] Not Available 03:02:08 01/19/20 24 09/15/2023 imagi ng/di agnos tic resul t No observ ation record ed. [email or web address] Not Available 03:02:15 01/19/20 24 09/15/2023 imagi ng/di agnos tic resul t No observ ation record ed. [email or web address] Not Available 03:02:19 01/19/20 24 09/24/2020 imagi ng/di agnos tic resul t No observ ation record ed. [email or web address] Not Available 03:02:23 01/19/20 24 10/03/2021 imagi ng/di agnos tic resul t No observ ation record ed. [email or web address] Not Available 03:02:24 01/19/20 24 10/03/2021 imagi ng/di agnos tic resul t No observ ation record ed. [email or web address] Not Available 03:02:25 01/19/20 24 10/03/2021 imagi ng/di agnos tic resul t No observ ation record ed. [email or web address] Not Available 03:02:26 01/19/20 24 11/03/2018 imagi ng/di agnos tic resul t No observ ation record ed. [email or web address] Not Available 03:02:29 01/19/20 24 11/03/2018 imagi ng/di agnos tic resul t No observ ation record ed. [email or web address] Not Available 03:02:31 Result Notes None recorded. Problems Name Problem SNOMED Code Status Onset Date Resolution Date Notes Provider Name and Address Organization Details Recorded Time Deviated nasal septum [id number] Completed 201412/31/2023 Deviated nasal septum; Note: Date Diagnose d: 02/06/2015 9:24 AM (470) Deviat ed nasal septum; Note: Date Diagnose d: 02/06/2015 9:24 AM (J34.2) [mapped from ICD9 code: 470] Not Available [facility] 4 02:20:49 Perforat ion of left tympanic membrane [id number] 64658 Active 2014 Unspecif ied perforat ion of tympanic membrane , left ear; Note: Date Diagnose d: 02/06/2015 9:24 AM (H72.92) [mapped from ICD9 code: 384.20] Not Available [facility] 4 02:20:44 Acute serous otitis media of right ear 02700918044 15416 Active 2018 Acute serous otitis media, right ear; Note: Date Diagnose d: 9 12:07 PM (H65.01) Not Available [facility] 4 02:20:41 Sensorin eural hearing loss in right ear 93801847133 100 Active 2017 Sensorin eural hearing loss, unilater al, right ear, with restrict ed hearing on the contrala teral side; Note: Date Diagnose d: 05/20/20 18 1:51 PM (H90.A21 ) Not Available [facility] 4 02:20:43 Arthralg ia of temporom andibula r joint 38517708 Active 2015 Arthralg ia of temporom andibula r joint; Note: Date Diagnose d: 6 11:16 AM (M26.62) Not Available [facility] 4 02:20:40 Mass of neck 612638740 Active 2021 Localize d swelling , mass and lump, neck; Note: Date Diagnose d: 07/30/2021 2:15 PM (R22.1) Not Available [facility] 4 02:20:42 Neck swelling 513311529 Active 2021 Localize d swelling , mass and lump, neck; Note: Date Diagnose d: 07/30/2021 2:15 PM (R22.1) Not Available [facility] 4 02:20:42 Allergic rhinitis 90726332 Active 2014 Allergic Rhinitis ; Note: Date Diagnose d: 02/06/2015 9:24 AM (477.9) Allerg ic rhinitis , unspecif ied; Note: Date Diagnose d: 02/06/2015 9:24 AM (J30.9) [mapped from ICD9 code: 477.9] Not Available [facility] 4 02:20:36 Mixed conducti ve and sensorin eural hearing loss of left ear 58272496079 107 Active 2017 Mixed conducti ve and sensorin eural hearing loss, unilater al, left ear with restrict ed hearing on the contrala teral side; Note: Date Diagnose d: 05/20/20 18 1:51 PM (H90.A32 ) Not Available [facility] 4 02:20:47 Unilater al mixed conducti ve and sensorin eural hearing loss with unrestri cted hearing on the contrala teral side Active 2013 Mixed hearing loss, unilater al; Note: Date Diagnose d: 04/19/20 14 3:28 PM (389.21) Not Available [facility] 4 02:20:43 Unilater al sensorin eural hearing loss with unrestri cted hearing on the contrala teral side Active 2013 Sensorin eural hearing loss unilater ally; Note: Date Diagnose d: 04/19/20 14 3:28 PM (389.15) Not Available [facility] 4 02:20:53 Cough 91284892 Active 2020 Cough; Note: Date Diagnose d: 08/05/2020 5:06 PM (R05) Not Available [facility] 4 02:20:45 Infectiv e otitis externa of left ear 31604265602 60037 Completed 201412/31/2023 Other infectiv e otitis externa, left ear; Note: Date Diagnose d: 03/21/20 15 11:16 AM (H60.392 ) Not Available [facility] 4 02:20:37 Hypertro phy of nasal turbinat es 86393513 Completed 201512/31/2023 Hypertro phy of nasal turbinat es; Note: Date Diagnose d: 6 12:37 PM (J34.3) Not Available [facility] 4 02:20:46 Bilatera l temporom andibula r joint pain 97792781282 620753 Active 2019 Arthralg ia of bilatera l temporom andibula r joint; Note: Date Diagnose d: 01/04/2020 6:29 PM (M26.623 ) Not Available [facility] 4 02:20:52 Snoring 22931501 Active 2018 Snoring; Note: Date Diagnose d: 9 12:17 PM (R06.83) Snorin g; Note: Date Diagnose d: 02/03/2017 2:18 PM (R06.83) ; Start Date : 02/04/20 17 Not Available [facility] 4 02:20:39 Dysphagi a 70584437 Active 2020 Other dysphagi a; Note: Date Diagnose d: 08/05/2020 5:06 PM (R13.19) Not Available [facility] 4 02:20:38 Temporom andibula r joint disorder 55644090 Active 2013 Temporom andibula r joint disorder ; CMS Risk: high risk CMS Treatmen t: establis hed problem (to examiner ): unstable or worsenin g Note: Date Diagnose d: 4 12:01 PM (524.60) Not Available [facility] 4 02:20:44 Marginal perforat ion of tympanic membrane 04479505 Completed 201512/31/2023 Other marginal perforat ions of tympanic membrane , left ear; Note: Date Diagnose d: 6 10:57 AM (H72.2X2 ) Not Available [facility] 4 02:20:53 Sensorin eural hearing loss of bilatera l ears 754472910 Active 2015 Sensorin eural hearing loss, bilatera l; Note: Date Diagnose d: 6 3:14 PM (H90.3) Not Available [facility] 4 02:20:50 Acute pharyngi tis 399741002 Completed 201712/31/2023 Pharyngi tis (acute) NOS; Note: Date Diagnose d: 06/07/2017 1:28 PM (J02.9) Not Available [facility] 4 02:20:42 Otalgia 68724312 Active 2013 Earache/ Otalgia; CMS Risk: low risk CMS Treatmen t: establis hed problem (to examiner ): stable or improved Note: Date Diagnose d: 4 12:01 PM (388.70) Earach e/ Otalgia; CMS Risk: high risk CMS Treatmen t: establis hed problem (to examiner ): unstable or worsenin g Note: Date Diagnose d: 4 12:01 PM (388.70) ; Start Date : 03/02/20 14 Not Available [facility] 4 02:20:39 Choleste atoma of left external ear 59760564634 80611 Completed 201812/31/2023 Choleste atoma of left external ear; Note: Date Diagnose d: 9 1:12 PM (H60.42) Not Available [facility] 4 02:20:53 Follow-u p visit Active 2018 Encounte r for follow-u p examinat ion after complete d treatmen t for conditio ns other than malignan t neoplasm ; Note: Date Diagnose d: 09/05/2018 10:05 AM (Z09) Encoun ter for follow-u p examinat ion after complete d treatmen t for conditio ns other than malignan t neoplasm ; Note: Date Diagnose d: 7 9:28 AM (Z09) ; Start Date : 01/29/20 17 Medic al surveill ance followin g complete d treatmen t; Note: Date Diagnose d: 6 1:23 PM (Z09) ; Start Date : 11/22/19 16 Not Available [facility] 4 02:20:46 Perforat ion of tympanic membrane 87784051 Active 2013 Tympanic membrane Perf; CMS Risk: high risk CMS Treatmen t: establis hed problem (to examiner ): unstable or worsenin g Note: Date Diagnose d: 4 12:01 PM (384.20) Not Available [facility] 4 02:20:40 Bilatera l disorder of Eustachi an tubes 55404280110 25167 Active 2017 Other specifie d disorder s of Eustachi an tube, bilatera l; Note: Date Diagnose d: 8 3:43 PM (H69.83) Not Available [facility] 4 02:20:38 Acute sinusiti s 14788037 Active 2018 Other acute sinusiti s; Note: Date Diagnose d: 04/14/20 19 10:41 AM (J01.80) Not Available [facility] 4 02:20:42 Obstruct sabrina sleep apnea syndrome 56124994 Active 2023 MARYSOL BENITES MD [address] [place] [address], [facility] [place], [address] , [facility] - [facility] 4 09:27:10 Impacted cerumen of bilatera l ears 84108962241 26503 Active 2023 Impacted cerumen, bilatera l; Note: Date Diagnose d: 4 10:18 AM (H61.23) Not Available [facility] 4 02:20:37 Pain of left temporom andibula r joint 61895669521 892453 Active 2023 Arthralg ia of left temporom andibula r joint; Note: Date Diagnose d: 4 9:49 AM (M26.622 ) Not Available [facility] 4 02:20:40 Otalgia of left ear 6958832295 Active 2023 Otalgia, left ear; Note: Date Diagnose d: 4 9:49 AM (H92.02) Not Available [facility] 02:20:47 Problem Notes None recorded. Procedures Surgical History None recorded. Imaging Results Imaging Date Name Status LastModified by [facility] Details LastModified Time 06/28/2023 imaging/diag nostic result completed Information not available 01/19/2024 03:01:27 07/30/2021 imaging/diag nostic result completed Information not available 01/19/2024 03:01:39 07/30/2021 imaging/diag nostic result completed Information not available 01/19/2024 03:01:46 08/06/2021 imaging/diag nostic result completed Information not available 01/19/2024 03:02:06 08/06/2021 imaging/diag nostic result completed Information not available 01/19/2024 03:02:08 09/15/2023 imaging/diag nostic result completed Information not available 01/19/2024 03:02:15 09/15/2023 imaging/diag nostic result completed Information not available 01/19/2024 03:02:19 09/24/2020 imaging/diag nostic result completed Information not available 01/19/2024 03:02:23 10/03/2021 imaging/diag nostic result completed Information not available 01/19/2024 03:02:24 10/03/2021 imaging/diag nostic result completed Information not available 01/19/2024 03:02:25 10/03/2021 imaging/diag nostic result completed Information not available 01/19/2024 03:02:26 11/03/2018 imaging/diag nostic result completed Information not available 01/19/2024 03:02:29 11/03/2018 imaging/diag nostic result completed Information not available 01/19/2024 03:02:31 Procedure Notes None recorded. Medical Equipment None Reported. Allergies Allergen ID Allergen Name Allergen Category Reaction Reaction Severity Criticality Documentation Date Start Date Code Code System Note Provider Name and Address Organization Details Recorded Time 734809 spironola ctone medicatio n Not available Not available Not available 11/22/2023 9997 RxNorm Lynn pennington [place] - [facility] 4 09:44:49 96371 nortripty line hydrochlo ride medicatio n other Not available Not available 10/12/202385335 0 RxNorm React ion: unkno wn, unspe cifie d;; Not Available [facility] 4 01:03:48 75193 Cafergot medicatio n other Not available Not available 10/12/202320017 RxNorm React ion: other react ion, Unkno wn; Not Available [facility] 4 01:03:52 09895 naproxen medicatio n other Not available Not available 10/12/2023 7258 RxNorm React ion: unkno wn, unspe cifie d;; Not Available [facility] 4 01:03:53 Medications Name Sig Start Date Stop Date Status Note LastModified by Organization Details LastModified Time d3 50 mcg (1999) tabs active Not Available Not Available Not Available cyclobenz aprine 10 mg tablet TAKE 1 TABLET BY MOUTH 3 TIMES A DAY NEEDED SPASMS active Not Available Not Available No t Available medroxypr ogesteron e 10 mg tablet 1 TABLET BY MOUTH DAILY,IN STR:TAKE FOR DAY 1-10 OF EACH MONTH. active Not Available Not Available No t Available Augmentin 875 mg-125 mg tablet 11/21 completed Medicati on ID: [id number] D uration Value: 10 Prescri bed By Name: AMIRA Oneal nd Name: Augmenti n Send Method: E-Prescr ibed Sub s Allowed: subs OK Speci al Instruct ion: 1 po bid for 10 days Med icationG enericNa me: Augmenti n Medica tion ID: [id number] D uration Value: 10 Prescri bed By Name: AMIRA Oneal nd Name: Augmenti n Send Method: E-Prescr ibed Sub s Allowed: subs OK Speci al Instruct ion: 1 po bid for 10 days Med icationG enericNa me: Augmenti n Not Available Not Available Not Available terconazo le 0.4 % vaginal cream 08/05 completed Medicati on ID: [id number] Du ration Value: 7 Brand Name: sebastianconpratik ole Send Method: E-Prescr ibed Sub s Allowed: subs OK Speci al Instruct ion: INSERT 1 APPLICAT ORFUL VAGINALL Y DAILY AT BEDTIME FOR 7 DAYS Med icationG enericNa me: terconaz ole Not Available Not Available Not Available acetamino phen 325 mg tablet TAKE 2 TABLETS (650 MG) TAKEN BY MOUTH EVERY 4 HOURS NOT TO EXCEED 4000 MG/DAY : NEEDED FOR PAIN active Not Available Not Available No t Available prednison e 10 mg tablet 05/20 completed Medicati on ID: [id number] D uration Value: 4 Brand Name: predniso ne Send Method: E-Prescr ibed Sub s Allowed: subs OK Medic ationGen ericName : predniso ne Not Available Not Available Not Available albuterol sulfate 2.5 mg/3 mL (0.083 %) solution for nebulizat ion 2017 active Medicati on ID: [id number] D uration Value: 12 Brand Name: albutero l sulfate Send Method: E-Prescr ibed Sub s Allowed: subs OK Medic ationGen ericName : albutero l sulfate Not Available Not Available Not Available Apri 0.15 mg-0.03 mg tablet 11/21 completed Medicati on ID: [id number] D uration Value: 28 Brand Name: Apri Sen d Method: E-Prescr ibed Sub s Allowed: subs OK Medic ationGen ericName : Apri Med ication ID: [id number] D uration Value: 28 Brand Name: Apri Sen d Method: E-Prescr ibed Sub s Allowed: subs OK Medic ationGen ericName : Apri Not Available Not Available Not Available Prenatabs Rx 29 mg iron-1 mg tablet 2020 active Medicati on ID: [id number] B rand Name: Prenatab s Rx Send Method: E-Prescr ibed Sub s Allowed: subs OK Medic ationGen ericName : Prenatab s Rx Not Available Not Available Not Available cetirizin e 10 mg tablet 11/21 completed Medicati on ID: [id number] B rand Name: cetirizi ne Send Method: E-Prescr ibed Sub s Allowed: subs OK Medic ationGen ericName : cetirizi ne Medic ation ID: [id number] B rand Name: cetirizi ne Send Method: E-Prescr ibed Sub s Allowed: subs OK Medic ationGen ericName : cetirizi ne Not Available Not Available Not Available fluconazo le 150 mg tablet TAKE 1 TABLET BY MOUTH ONCE,R EPEAT DOSE IF STILL HAVING SYMPTOMS IN 72 HOURS 11/21 completed Not Available Not Available Not Available metronida zole 0.75 % (37.5 mg/5 gram) vaginal gel INSERT 1 APPLICAT ORFUL VAGINALL Y AT BEDTIME FOR 5 DAYS active Not Available Not Available No t Available ondansetr on HCl 4 mg tablet TAKE 1 TABLET BY MOUTH EVERY 8 HOURS NEEDED FOR NAUSEA AND VOMITING active Not Available Not Available No t Available prednison e 20 mg tablet 2 tablet by mouth 11/21 completed Medicati on ID: [id number] D uration Value: 3 Prescri bed By Name: Kristen Huber nd Name: predniso ne Send Method: E-Prescr ibed Sub s Allowed: subs OK Speci al Instruct ion: 2 tabs daily for 3 days Med icationG enericNa me: predniso ne Medic ation ID: [id number] D uration Value: 3 Prescri bed By Name: Kristen Huber nd Name: predniso ne Send Method: E-Prescr ibed Sub s Allowed: subs OK Speci al Instruct ion: 2 tabs daily for 3 days Med icationG enericNa me: predniso ne Not Available Not Available Not Available dextroamp hetamine- amphetami ne 10 mg tablet 08/05 completed Medicati on ID: [id number] D uration Value: 28 Brand Name: dextroam phetamin e-amphet amine Se nd Method: E-Prescr ibed Sub s Allowed: subs OK Medic ationGen ericName : dextroam phetamin e-amphet amine Not Available Not Available Not Available spironola ctone 100 mg tablet 2020 active Medicati on ID: [id number] B rand Name: spironol actone S end Method: E-Prescr ibed Sub s Allowed: subs OK Medic ationGen ericName : spironol actone Not Available Not Available Not Available naproxen 250 mg tablet 08/05 completed Medicati on ID: [id number] Bra nd Name: naproxen Send Method: E-Prescr ibed Sub s Allowed: subs OK Medic ationGen ericName : naproxen Not Available Not Available Not Available metronida zole 500 mg tablet TAKE 1 TABLET BY MOUTH EVERY 12 HOURS FOR 7 DAYS active Not Available Not Available No t Available Ciloxan 0.3 % eye drops 11/21 completed Medicati on ID: [id number] D uration Value: 14 Prescri bed By Name: AMIRA Lynch nd Name: Ciloxan Send Method: E-Prescr ibed Sub s Allowed: subs OK Speci al Instruct ion: Instill 4 drops twice a day into the affected ear. Med icationG enericNa me: Ciloxan Medicati on ID: [id number] D uration Value: 14 Prescri bed By Name: AMIRA Lynch nd Name: Ciloxan Send Method: E-Prescr ibed Sub s Allowed: subs OK Speci al Instruct ion: Instill 4 drops twice a day into the affected ear. Med icationG enericNa me: Ciloxan Not Available Not Available Not Available aspirin 81 mg tablet,de layed release TAKE 2 TABLETS BY MOUTH DAILY STARTING AT 12 WEEKS active Not Available Not Available No t Available amoxicill in 500 mg tablet TAKE 1 TABLET BY MOUTH 3 TIMES A DAY FOR 7 DAYS 11/21 completed Not Available Not Available Not Available nystatin- triamcino lone 100,000 unit/gram -0.1 % topical ointment APPLY TO AFFECTED AREA 1 APPLICAT ION TOPICALL Y 3 TIMES A DAY,X5 DAYS active Not Available Not Available No t Available Miconazol e-7 2 % vaginal cream INSERT 1 APPLICAT ORFUL VAGINALL Y AT BEDTIME FOR 7 DAYS active Not Available Not Available No t Available ofloxacin 0.3 % ear drops 4 drop into left ear 11/21 completed Medicati on ID: [id number] D uration Value: 7 Brand Name: ofloxaci n Send Method: E-Prescr ibed Sub s Allowed: subs OK Medic ationGen ericName : ofloxaci n Medica tion ID: [id number] D uration Value: 7 Brand Name: ofloxaci n Send Method: E-Prescr ibed Sub s Allowed: subs OK Medic ationGen ericName : ofloxaci n Not Available Not Available Not Available amoxicill in 875 mg tablet 12/26 completed Medicati on ID: [id number] Bra nd Name: amoxicil александр Send Method: E-Prescr ibed Sub s Allowed: subs OK Medic ationGen ericName : amoxicil александр Not Available Not Available Not Available naproxen sodium 550 mg tablet 1 TABLET BY MOUTH 2 TIMES A DAY,X10 DAYS NEEDED MODERATE PAIN active Not Available Not Available No t Available oseltamiv ir 75 mg capsule TAKE 1 CAPSULE BY MOUTH TWO TIMES A DAY FOR 5 DAYS active Not Available Not Available No t Available misoprost ol 200 mcg tablet PLEASE SEE ATTACHED FOR DETAILED DIRECTIO NS 11/21 completed Not Available Not Available Not Available ibuprofen 400 mg tablet 11/21 completed Medicati on ID: [id number] B rand Name: ibuprofe n Send Method: E-Prescr ibed Sub s Allowed: subs OK Medic ationGen ericName : ibuprofe n Medica tion ID: [id number] B rand Name: ibuprofe n Send Method: E-Prescr ibed Sub s Allowed: subs OK Medic ationGen ericName : ibuprofe n Not Available Not Available Not Available dextroamp hetamine- amphetami ne 15 mg tablet TAKE 1 TABLET BY MOUTH EVERY DAY IN THE MORNING active Not Available Not Available No t Available omeprazol e 20 mg capsule,d elayed release 2020 active Medicati on ID: [id number] B rand Name: omeprazo le Send Method: E-Prescr ibed Sub s Allowed: subs OK Medic ationGen ericName : omeprazo le Not Available Not Available Not Available epinephri ne 0.3 mg/0.3 mL injection , auto-inje ctor ONE INTRAMUS CULAR ONCE NEEDED FOR ANAPHYLA XIS,INST R:MUST GO TO ER IF USED active Not Available Not Available No t Available ibuprofen 600 mg tablet TAKE 1 TABLET TAKEN BY MOUTH EVERY 6 HOURS NOT TO EXCEED 3200 MG/DAY : NEEDED FOR PAIN active Not Available Not Available No t Available Hughes 5 mg-325 mg tablet 1-2 tablet by mouth 2015 active Medicati on ID: [id number] D uration Value: 7 Prescri bed By Name: Bernardo Gregorio M.D. Bra nd Name: Hughes Se nd Method: E-Prescr ibed Sub s Allowed: subs OK Medic ationGen ericName : Hughes Not Available Not Available Not Available fluticaso ne propionat e 50 mcg/actua tion nasal spray,jyoti pension 11/21 completed Medicati on ID: [id number] B rand Name: fluticas one propiona te Send Method: E-Prescr ibed Sub s Allowed: subs OK Medic ationGen ericName : fluticas one propiona te Medic ation ID: [id number] B rand Name: fluticas one propiona te Send Method: E-Prescr ibed Sub s Allowed: subs OK Medic ationGen ericName : fluticas one propiona te Not Available Not Available Not Available metformin ER 500 mg tablet,ex tended release 24 hr 11/21 completed Medicati on ID: [id number] D uration Value: 30 Brand Name: metformi n Send Method: E-Prescr ibed Sub s Allowed: subs OK Medic ationGen ericName : metformi n Medica tion ID: [id number] D uration Value: 30 Brand Name: metformi n Send Method: E-Prescr ibed Sub s Allowed: subs OK Medic ationGen ericName : metformi n Not Available Not Available Not Available dextroamp hetamine- amphetami ne 5 mg tablet 08/05 completed Medicati on ID: [id number] D uration Value: 28 Brand Name: dextroam phetamin e-amphet amine Se nd Method: E-Prescr ibed Sub s Allowed: subs OK Speci al Instruct ion: TAKE 1 TABLET BY MOUTH EVERY DAY Medi cationGe nericNam e: dextroam phetamin e-amphet amine Not Available Not Available Not Available naproxen 500 mg tablet 08/05 completed Medicati on ID: [id number] D uration Value: 30 Brand Name: naproxen Send Method: E-Prescr ibed Sub s Allowed: subs OK Speci al Instruct ion: TAKE 1 TAB BY MOUTH 2 TIMES DAILY (WITH MEALS) FOR 30 DAYS. Me dication GenericN yamil: naproxen Not Available Not Available Not Available oxycodone 5 mg tablet TAKE 1 TABLET BY MOUTH EVERY 6 HOURS NEEDED FOR PAIN 11/21 completed Not Available Not Available Not Available Katie (28) 0.3 mg-30 mcg tablet 08/05 completed Medicati on ID: [id number] Du ration Value: 28 Brand Name: Katie (28) Sen d Method: E-Prescr ibed Sub s Allowed: subs OK Speci al Instruct ion: TAKE 1 TABLET BY MOUTH EVERY DAY Medi cationGe nericNam e: Cryselle (28) Not Available Not Available Not Available Ciprodex 0.3 %-0.1 % ear drops,jyoti pension Instill 4 drop into both ears twice a day as directed 11/21 completed Medicati on ID: [id number] D uration Value: 7 Brand Name: Ciprodex Send Method: E-Prescr ibed Sub s Allowed: subs OK Speci al Instruct ion: right ear Medi cationGe nericNam e: Ciprodex Medicat ion ID: [id number] D uration Value: 7 Brand Name: Ciprodex Send Method: E-Prescr ibed Sub s Allowed: subs OK Speci al Instruct ion: right ear Medi cationGe nericNam e: Ciprodex Not Available Not Available Not Available nitrofura ntoin monohydra te/macroc rystals 100 mg capsule TAKE 1 CAPSULE BY MOUTH 2 TIMES A DAY,X5 DAYS,:WI TH FOOD active Not Available Not Available No t Available Flovent HFA 110 mcg/actua tion aerosol inhaler 11/21 completed Medicati on ID: [id number] B rand Name: Flovent HFA Send Method: E-Prescr ibed Sub s Allowed: subs OK Medic ationGen ericName : Flovent HFA Medi cation ID: [id number] B rand Name: Flovent HFA Send Method: E-Prescr ibed Sub s Allowed: subs OK Medic ationGen ericName : Flovent HFA Not Available Not Available Not Available ProAir HFA 90 mcg/actua tion aerosol inhaler 11/21 completed Medicati on ID: [id number] D uration Value: 30 Brand Name: ProAir HFA Send Method: E-Prescr ibed Sub s Allowed: subs OK Medic ationGen ericName : ProAir HFA Medi cation ID: [id number] D uration Value: 30 Brand Name: ProAir HFA Send Method: E-Prescr ibed Sub s Allowed: subs OK Medic ationGen ericName : ProAir HFA Not Available Not Available Not Available Enbrel SureClick 50 mg/mL (1 mL) subcutane ous pen injector active Not Available Not Available Not Available Enbrel 25 mg/0.5 mL (0.5 mL) subcutane ous syringe 08/05 completed Medicati on ID: [id number] Bra nd Name: Enbrel S end Method: E-Prescr ibed Sub s Allowed: subs OK Medic ationGen ericName : Enbrel Not Available Not Available Not Available diclofena c 1 % topical gel 11/21 completed Medicati on ID: [id number] B rand Name: diclofen ac sodium S end Method: E-Prescr ibed Sub s Allowed: subs OK Medic ationGen ericName : diclofen ac sodium M edicatio n ID: [id number] B rand Name: diclofen ac sodium S end Method: E-Prescr ibed Sub s Allowed: subs OK Medic ationGen ericName : diclofen ac sodium Not Available Not Available Not Available Vitamin D3 50 mcg (2,000 unit) tablet TAKE 1 TABLET BY MOUTH EVERY DAY active Not Available Not Available No t Available Millicent 3 mg-0.03 mg tablet TAKE 1 TABLET BY MOUTH EVERY DAY active Not Available Not Available No t Available Vitals Date Recorded Body height Body mass index (BMI) Body weight Provider Name and Address Organization Details Last Updated DateTime 11/22/2023 167.64 cm 33.1 kg/m2 60290.44 g Lynn Garrison MA - [facility] 11/22/2023 09:44:39 Social History None recorded. Functional Status None recorded. Mental Status None recorded. Family History Nothing Reported. Medical History No medical history recorded. Gynecological HistoryNo gynecological history recorded. Obstetrics History GPAL:G 0 P 0 0 0 0 Past Encounters Encounter ID Performer Location Encounter Start Date Encounter Closed Date Diagnosis/Indication Diagnosis SNOMED-CT Code Diagnosis ICD10 Code Diagnosis Note [id number] MARYSOL BENITES MD [facility] of [address] [address] 11/22/2023 09:33:52 11/22/2023 10:01:29 Obstructive sleep apnea syndrome 38231705 G47.33 Health Concerns Section Related Observation LastModified by Organization Detai ls LastModified Time None Recorded Concern Status LastModified by Organization Details LastModified Time None Recorded Advance Directives Directive None Recorded Payers Encounter Date Sequence Insurance Name Policy Number Policy Andrews Covered Member ID Andrews Member ID Guarantor Name 11/22/2023 1 [facility] (MEDICAID HMO) [id number] Caryn Severino [id number] Caryn Severino Notes Date Note Type Note Provider Name and Address Organization Details Recorded Time 11/22/2023 text/html Patient of Dr Waddell son with history 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 She is s/p left fasciaform tympanoplasty in 10/2015 Now referred to me for evaluation of OSAhas PSG scheduled for February 2024sx of fatiguewakes self up with snoring and keeps partner awake due to snoringweight gain to 205 with prev baseline 189 despite portion controlwork 3a-3:30p as [facility] to change shift to 7p-7a [facility] adenoide[facility], septoplasty, rhinoplasty (Dr Vazquez) 07/22/2012 PSG at [facility] 33.7AHI 1.4Interpretation of likely chronic sleep deprivation with increased delta wave sleep pattern and snoring MARYSOL BENITES MD [address] [place] [address], [place], [address], [place] - [facility] 11/22/2023 09:56:08 OBGyn Episode No OBEpisode recorded.
== END 2024-06-20 09:41 | disposition home or self-care (01) ==
PROVIDERS: PCP Internal Medicine; Visit Provider Student in an Organized Health Care Education/Training Program
DX: M05.79 Rheumatoid arthritis with rheumatoid factor of multiple sites without organ or systems involvement (principal); Z79.60 Long term (current) use of unspecified immunomodulators and immunosuppressants; M65.942 Unspecified synovitis and tenosynovitis, left hand; R20.2 Paresthesia of skin
CPT/HCPCS: 99214; G2211

== ENCOUNTER → 2024-06-20 09:14 | Outpatient (BNVA) | payer OTHER, SELFPAY | PROVIDERS: PCP Internal Medicine; Visit Provider Student in an Organized Health Care Education/Training Program | DX: M05.9 Rheumatoid arthritis with rheumatoid factor, unspecified (principal); M65.98 Unspecified synovitis and tenosynovitis, other site; R20.2 Paresthesia of skin; Z79.60 Long term (current) use of unspecified immunomodulators and immunosuppressants | CPT/HCPCS: 99212 ==

== ENCOUNTER 2024-06-26 13:38 | Outpatient (REF) | payer OTHER, SELFPAY ==
--- NOTE | ~2024-06-26 | XR_ITS ---
EXAMINATION: XR KNEE 4 OR MORE VIEWS LEFT HISTORY: M05.9 - Rheumatoid arthritis with rheumatoid factor, unspecified COMPARISON: There are no prior studies available for comparison. FINDINGS: Three views of the left knee are submitted. Osseous mineralization is normal. There is no fracture or dislocation. The joint spaces are preserved. The soft tissues are unremarkable. There is no joint effusion. XR/XR knee LT 4V IMPRESSION: Unremarkable examination of the left knee. Electronically signed by: Gerard Dukes MD 06/27/2024 07:14 AM [facility]
--- NOTE | ~2024-06-26 | XR_ITS ---
EXAMINATION: XR HAND AND WRIST COMPLETE RIGHT HISTORY: M05.9 - Rheumatoid arthritis with rheumatoid factor, unspecified COMPARISON: There are no prior studies available for comparison. FINDINGS: Four views of the right hand and wrist are submitted. Osseous mineralization is normal. There is no fracture or dislocation. There are multiple erosions seen involving the carpal bones. There is moderate joint space narrowing of the radiocarpal and ulnocarpal articulations. The remaining joint spaces are maintained. There is mild ulnar deviation of the 5th finger at the MCP joint. The soft tissues are unremarkable. XR/XR hand wrist RT IMPRESSION: Multiple erosions involving the carpal bones with associated joint space narrowing. Electronically signed by: Gerard Dukes MD 06/27/2024 07:19 AM [facility]
--- NOTE | ~2024-06-26 | XR_ITS ---
EXAMINATION: XR FOOT 3 OR MORE VIEWS RIGHT HISTORY: M05.9 - Rheumatoid arthritis with rheumatoid factor, unspecified COMPARISON: There are no prior studies available for comparison. FINDINGS: Three views of the right foot are submitted. Osseous mineralization is normal. There is no fracture or dislocation. There are erosions involving the 5th metatarsal head. There is no significant joint space narrowing. There is a tiny plantar calcaneal spur. The soft tissues are unremarkable. XR/XR foot RT min 3V IMPRESSION: Erosions of the 5th metatarsal without significant joint space narrowing. Electronically signed by: Gerard Dukes MD 06/27/2024 07:16 AM [facility]
--- NOTE | ~2024-06-26 | XR_ITS ---
EXAMINATION: XR CERVICAL SPINE CLINICAL INFORMATION: M05.9 - Rheumatoid arthritis with rheumatoid factor, unspecified COMPARISON: None available. TECHNIQUE: 6 views of the cervical spine, inclusive of flexion and extension views, were obtained. FINDINGS: There is mild straightening of cervical lordosis. The vertebral heights, alignment and disc heights are normal. There is mild ventral spurring C4-5 disc level. No aggressive lytic or sclerotic process seen. On flexion and extension views there is no subluxation seen. The prevertebral soft tissues are normal. XR/XR cervical spine w flex/ext IMPRESSION: Ventral spondylosis C4-5 disc level. No visible acute fracture, dislocation. No subluxation seen on flexion or extension views. Electronically signed by: Lion Ramos MD 06/27/2024 10:25 AM [facility]
--- NOTE | ~2024-06-26 | XR_ITS ---
EXAMINATION: XR FOOT 3 OR MORE VIEWS LEFT HISTORY: M05.9 - Rheumatoid arthritis with rheumatoid factor, unspecified COMPARISON: There are no prior studies available for comparison. FINDINGS: Three views of the left foot are submitted. Osseous mineralization is normal. There is no fracture or dislocation. There are erosions involving the 5th metatarsal head. No additional erosions are seen. There is no significant joint space narrowing. There is a tiny plantar calcaneal spur. The soft tissues are unremarkable. XR/XR foot LT min 3V IMPRESSION: Erosions of the 5th metatarsal head. No significant joint space narrowing. Electronically signed by: Gerard Dukes MD 06/27/2024 07:15 AM [facility]
--- NOTE | ~2024-06-26 | XR_ITS ---
EXAMINATION: XR HAND AND WRIST COMPLETE LEFT HISTORY: M05.9 - Rheumatoid arthritis with rheumatoid factor, unspecified COMPARISON: There are no prior studies available for comparison. FINDINGS: Four views of the left hand and wrist are submitted. Osseous mineralization is normal. There is no fracture or dislocation. There are multiple erosions involving the carpal bones. There is moderate joint space narrowing involving the proximal carpal row. The remaining joint spaces are maintained. The soft tissues are unremarkable. XR/XR hand wrist LT IMPRESSION: Multiple erosions involving the carpal bones with moderate joint space narrowing in the proximal carpal row. Electronically signed by: Gerard Dukes MD 06/27/2024 07:20 AM [facility]
--- NOTE | ~2024-06-26 | XR_ITS ---
EXAMINATION: XR KNEE 4 OR MORE VIEWS RIGHT HISTORY: M05.9 - Rheumatoid arthritis with rheumatoid factor, unspecified COMPARISON: There are no prior studies available for comparison. FINDINGS: Four views of the right knee and a standing AP view of the left knee are submitted. Osseous mineralization is normal. There is no fracture or dislocation. The joint spaces are preserved. The soft tissues are unremarkable. XR/XR knee RT 4V IMPRESSION: Unremarkable examination of the right knee. Electronically signed by: Gerard Dukes MD 06/27/2024 07:17 AM [facility]
[2024-06-26 13:52] LABS: MANUAL DIFF FLAG NO
[2024-06-26 14:43] LABS: Basophils Percent Auto 0.4 % (0-2); Eosinophils Absolute Auto 0.1 X10*3/uL (0.0-0.4); Eosinophils Percent Auto 1.7 % (0-4); Hematocrit 36.1 % (37.0-47.0); Hemoglobin 10.9 g/dl (12.0-16.0); Imm Gran Abs Auto 0.01 X10*3/uL (0.00-0.03); Imm Gran Pct Auto 0.2 % (0.0-0.4); Lymphocytes Absolute Auto 2.2 X10*3/uL (1.2-4.9); Lymphocytes Percent Auto 41.9 % (20-40); Mean Corpuscular HGB Conc 30.2 g/dl (31.0-35.0); Mean Corpuscular Hemoglobin 22.9 pg (27.0-33.0); Mean Corpuscular Volume 75.7 fL (80.0-98.0); Mean Platelet Volume 9.1 fL (9.4-12.3); Monocytes Absolute Auto 0.4 X10*3/uL (0.1-1.2); Monocytes Percent Auto 6.7 % (2-11); Neutrophils Absolute Auto 2.6 x10*3/uL (2.0-8.3); Neutrophils Percent Auto 49.1 % (45-73); Platelet Count 341 X10*3/uL (160-400); Red Blood Count 4.77 X10*6/uL (4.20-5.50); Red Cell Distribution Width 16.4 % (11.0-16.0); White Blood Count 5.3 X10*3/uL (4.8-10.8)
[2024-06-26 15:20] LABS: Erythrocyte Sedimentation Rate 38 MM/HR (0-20)
[2024-06-26 15:39] LABS: Alanine Aminotransferase 25 U/L (0-31); Albumin Level 3.8 g/dL (3.5-5.0); Anion Gap 11 (12-20); Aspartate Amino Transferase 30 U/L (5-31); Bilirubin Total 0.2 mg/dL (0.0-1.0); Blood Urea Nitrogen 16 mg/dL (9-16); C Reactive Protein 0.16 mg/dL (< or = 0.50); Calcium 9.4 mg/dL (8.4-10.2); Carbon Dioxide 23 mmol/L (22-29); Chloride 109 mmol/L (96-108); Estimated Glomerular Filt Rate > 60; Glucose Random 92 mg/dL (60-115); Sodium 139 mmol/L (135-145); Total Protein 7.9 g/dL (6.5-8.0)
[2024-06-26 15:50] LABS: Alkaline Phosphatase 55 U/L (39-117)
--- OUTSIDE RECORDS SUMMARY | 2024-06-26 18:21 | XMS_ITS | Data Portability ---
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 Name Role Phone GAEL BEAVERS Primary Care [...] Organization Details Recorded Time Deviated nasal septum [id number] Completed 201412/31/2023 Deviated nasal septum; Note: Date Diagnose d: 02/06/2015 9:24 AM (470) Deviat ed nasal septum; Note: Date Diagnose d: 02/06/2015 9:24 AM (J34.2) [mapped from ICD9 code: 470] Not Available [facility] 4 02:20:49 Perforat ion of left tympanic membrane 59623470467 00913 Active 2014 Unspecif ied perforat ion of tympanic membrane , left ear; Note: Date Diagnose d: 02/06/2015 9:24 AM (H72.92) [mapped from ICD9 code: 384.20] Not Available [facility] 4 02:20:44 Acute serous otitis media of right ear 64381144759 25602 Active 2018 Acute serous otitis media, right ear; Note: Date Diagnose d: 9 12:07 PM (H65.01) Not Available [facility] 4 02:20:41 Sensorin eural hearing loss in right ear 86422561353 100 Active 2017 Sensorin eural hearing loss, unilater al, right ear, with restrict ed hearing on the contrala teral side; Note: Date Diagnose d: 05/20/20 18 1:51 PM (H90.A21 ) Not Available [facility] 4 02:20:43 Arthralg ia of temporom andibula r joint 26002622 Active 2015 Arthralg ia of temporom andibula r joint; Note: Date Diagnose d: 6 11:16 AM (M26.62) Not Available [facility] 4 02:20:40 Mass of neck 136966734 Active 2021 Localize d swelling , mass and lump, neck; Note: Date Diagnose d: 07/30/2021 2:15 PM (R22.1) Not Available [facility] 4 02:20:42 Neck swelling 574580445 Active 2021 Localize d swelling , mass and lump, neck; Note: Date Diagnose d: 07/30/2021 2:15 PM (R22.1) Not Available [facility] 4 02:20:42 Allergic rhinitis 07442867 Active 2014 Allergic Rhinitis ; Note: Date Diagnose d: 02/06/2015 9:24 AM (477.9) Allerg ic rhinitis , unspecif ied; Note: Date Diagnose d: 02/06/2015 9:24 AM (J30.9) [mapped from ICD9 code: 477.9] Not Available [facility] 4 02:20:36 Mixed conducti ve and sensorin eural hearing loss of left ear 31538377047 107 Active 2017 Mixed conducti ve and sensorin eural hearing loss, unilater al, left ear with restrict ed hearing on the contrala teral side; Note: Date Diagnose d: 05/20/20 18 1:51 PM (H90.A32 ) Not Available [facility] 4 02:20:47 Unilater al mixed conducti ve and sensorin eural hearing loss with unrestri cted hearing on the contrala teral side Active 2013 Mixed hearing loss, unilater al; Note: Date Diagnose d: 04/19/20 14 3:28 PM (389.21) Not Available [facility] 4 02:20:43 Unilater al sensorin eural hearing loss with unrestri cted hearing on the contrala teral side Active 2013 Sensorin eural hearing loss unilater ally; Note: Date Diagnose d: 04/19/20 14 3:28 PM (389.15) Not Available [facility] 4 02:20:53 Cough 93475202 Active 2020 Cough; Note: Date Diagnose d: 08/05/2020 5:06 PM (R05) Not Available [facility] 4 02:20:45 Infectiv e otitis externa of left ear 84912140573 57191 Completed 201412/31/2023 Other infectiv e otitis externa, left ear; Note: Date Diagnose d: 03/21/20 15 11:16 AM (H60.392 ) Not Available [facility] 4 02:20:37 Hypertro phy of nasal turbinat es 34586115 Completed 201512/31/2023 Hypertro phy of nasal turbinat es; Note: Date Diagnose d: 6 12:37 PM (J34.3) Not Available [facility] 4 02:20:46 Bilatera l temporom andibula r joint pain 52568517464 113880 Active 2019 Arthralg ia of bilatera l temporom andibula r joint; Note: Date Diagnose d: 01/04/2020 6:29 PM (M26.623 ) Not Available [facility] 4 02:20:52 Snoring 15809677 Active 2018 Snoring; Note: Date Diagnose d: 9 12:17 PM (R06.83) Snorin g; Note: Date Diagnose d: 02/03/2017 2:18 PM (R06.83) ; Start Date : 02/04/20 17 Not Available [facility] 4 02:20:39 Dysphagi a 72421644 Active 2020 Other dysphagi a; Note: Date Diagnose d: 08/05/2020 5:06 PM (R13.19) Not Available [facility] 4 02:20:38 Temporom andibula r joint disorder 17841277 Active 2013 Temporom andibula r joint disorder ; CMS Risk: high risk CMS Treatmen t: establis hed problem (to examiner ): unstable or worsenin g Note: Date Diagnose d: 4 12:01 PM (524.60) Not Available [facility] 4 02:20:44 Marginal perforat ion of tympanic membrane 00644491 Completed 201512/31/2023 Other marginal perforat ions of tympanic membrane , left ear; Note: Date Diagnose d: 6 10:57 AM (H72.2X2 ) Not Available [facility] 4 02:20:53 Sensorin eural hearing loss of bilatera l ears 786382035 Active 2015 Sensorin eural hearing loss, bilatera l; Note: Date Diagnose d: 6 3:14 PM (H90.3) Not Available [facility] 4 02:20:50 Acute pharyngi tis 202124242 Completed 201712/31/2023 Pharyngi tis (acute) NOS; Note: Date Diagnose d: 06/07/2017 1:28 PM (J02.9) Not Available [facility] 4 02:20:42 Otalgia 10305094 Active 2013 Earache/ Otalgia; CMS Risk: low [...] Start Date : 03/02/20 14 Not Available [facility] 4 02:20:39 Choleste atoma of left external ear 89294578388 20673 Completed 201812/31/2023 Choleste atoma of left external ear; Note: Date Diagnose d: 9 1:12 PM (H60.42) Not Available [facility] 4 02:20:53 Follow-u p visit Active 2018 [...] Start Date : 11/22/19 16 Not Available [facility] 4 02:20:46 Perforat ion of tympanic membrane 48904481 Active 2013 Tympanic membrane Perf; CMS Risk: high risk CMS Treatmen t: establis hed problem (to examiner ): unstable or worsenin g Note: Date Diagnose d: 4 12:01 PM (384.20) Not Available [facility] 4 02:20:40 Bilatera l disorder of Eustachi an tubes 92547725825 01424 Active 2017 Other specifie d disorder s of Eustachi an tube, bilatera l; Note: Date Diagnose d: 8 3:43 PM (H69.83) Not Available [facility] 4 02:20:38 Acute sinusiti s 32845653 Active 2018 Other acute sinusiti s; Note: Date Diagnose d: 04/14/20 19 10:41 AM (J01.80) Not Available [facility] 4 02:20:42 Obstruct sabrina sleep apnea syndrome 07259478 Active 2023 MARYSOL BENITES MD [address] [place] [address], [facility] RYAN rios, [address] , [facility] - [facility] 4 09:27:10 Impacted cerumen of bilatera l ears 54541161673 91515 Active 2023 Impacted cerumen, bilatera l; Note: Date Diagnose d: 4 10:18 AM (H61.23) Not Available [facility] 4 02:20:37 Pain of left temporom andibula r joint 41615865653 562930 Active 2023 Arthralg ia of left temporom andibula r joint; Note: Date Diagnose d: 4 9:49 AM (M26.622 ) Not Available [facility] 4 02:20:40 Otalgia of left ear 3479714336 Active 2023 Otalgia, left ear; Note: Date Diagnose d: 4 9:49 AM (H92.02) Not Available [facility] 02:20:47 Problem Notes None recorded. Procedures Surgical History None recorded. Imaging Results Imaging Date Name Status LastModified by [facility] Details LastModified Time 06/28/2023 imaging/diag nostic result [...] Name and Address Organization Details Recorded Time 942740 spironola ctone medicatio n Not available Not available Not available 11/22/2023 9997 RxNorm Lynn pennington MA - [facility] 4 09:44:49 67032 nortripty line hydrochlo ride medicatio n other Not available Not available 10/12/202394828 0 RxNorm React ion: unkno wn, unspe cifie d;; Not Available [facility] 4 01:03:48 79922 Cafergot medicatio n other Not available Not available 10/12/202320017 RxNorm React ion: other react ion, Unkno wn; Not Available [facility] 4 01:03:52 31959 naproxen medicatio n other Not available Not available 10/12/2023 7258 RxNorm React ion: unkno wn, unspe cifie d;; Not Available [facility] 4 01:03:53 Medications Name Sig Start Date [...] mg tablet 11/21 completed Medicati on ID: [id number] D uration Value: 10 Prescri bed By Name: AMIRA Oneal nd Name: Augmenti n Send Method: E-Prescr ibed Sub s Allowed: subs OK Speci al Instruct ion: 1 po bid for 10 days Med icationG enericNa me: Augmenti n Medica tion ID: [id number] D uration Value: 10 Prescri bed By Name: AMIRA Oneal nd Name: Augmenti n Send Method: E-Prescr ibed Sub s Allowed: subs OK Speci al Instruct ion: 1 po bid for 10 days Med icationG enericNa me: Augmenti n Not Available Not Available Not Available terconazo le 0.4 % vaginal cream 08/05 completed Medicati on ID: [id number] Du ration Value: 7 Brand Name: sebastianconpratik [...] mg tablet 05/20 completed Medicati on ID: [id number] D uration Value: 4 Brand Name: predniso ne Send Method: E-Prescr ibed Sub s Allowed: subs OK Medic ationGen ericName : predniso ne Not Available Not Available Not Available albuterol sulfate 2.5 mg/3 mL (0.083 %) solution for nebulizat ion 2017 active Medicati on ID: [id number] D uration Value: 12 Brand Name: albutero l sulfate Send Method: E-Prescr ibed Sub s Allowed: subs OK Medic ationGen ericName : albutero l sulfate Not Available Not Available Not Available Apri 0.15 mg-0.03 mg tablet 11/21 completed Medicati on ID: [id number] D uration Value: 28 Brand Name: Apri Sen d Method: E-Prescr ibed Sub s Allowed: subs OK Medic ationGen ericName : Apri Med ication ID: [id number] D uration Value: 28 Brand Name: Apri Sen d Method: E-Prescr ibed Sub s Allowed: subs OK Medic ationGen ericName : Apri Not Available Not Available Not Available Prenatabs Rx 29 mg iron-1 mg tablet 2020 active Medicati on ID: [id number] B rand Name: Prenatab s Rx Send Method: E-Prescr ibed Sub s Allowed: subs OK Medic ationGen ericName : Prenatab s Rx Not Available Not Available Not Available cetirizin e 10 mg tablet 11/21 completed Medicati on ID: [id number] B rand Name: cetirizi ne Send Method: E-Prescr ibed Sub s Allowed: subs OK Medic ationGen ericName : cetirizi ne Medic ation ID: [id number] B rand Name: cetirizi ne Send Method: [...] by mouth 11/21 completed Medicati on ID: [id number] D uration Value: 3 Prescri bed By Name: Kristen Huber nd Name: predniso ne Send Method: E-Prescr ibed Sub s Allowed: subs OK Speci al Instruct ion: 2 tabs daily for 3 days Med icationG enericNa me: predniso ne Medic ation ID: [id number] D uration Value: 3 Prescri bed By Name: Kristen Huber nd Name: predniso ne Send Method: E-Prescr ibed Sub s Allowed: subs OK Speci al Instruct ion: 2 tabs daily for 3 days Med icationG enericNa me: predniso ne Not Available Not Available Not Available dextroamp hetamine- amphetami ne 10 mg tablet 08/05 completed Medicati on ID: [id number] D uration Value: 28 Brand Name: dextroam phetamin e-amphet amine Se nd Method: E-Prescr ibed Sub s Allowed: subs OK Medic ationGen ericName : dextroam phetamin e-amphet amine Not Available Not Available Not Available spironola ctone 100 mg tablet 2020 active Medicati on ID: [id number] B rand Name: spironol actone S end [...] eye drops 11/21 completed Medicati on ID: [id number] D uration Value: 14 Prescri bed By Name: AMIRA Lynch nd Name: Ciloxan Send Method: E-Prescr ibed Sub s Allowed: subs OK Speci al Instruct ion: Instill 4 drops twice a day into the affected ear. Med icationG enericNa me: Ciloxan Medicati on ID: [id number] D uration Value: 14 Prescri bed By [...] left ear 11/21 completed Medicati on ID: [id number] D uration Value: 7 Brand Name: ofloxaci n Send Method: E-Prescr ibed Sub s Allowed: subs OK Medic ationGen ericName : ofloxaci n Medica tion ID: [id number] D uration Value: 7 Brand Name: ofloxaci [...] mg tablet 11/21 completed Medicati on ID: [id number] B rand Name: ibuprofe n Send Method: E-Prescr ibed Sub s Allowed: subs OK Medic ationGen ericName : ibuprofe n Medica tion ID: [id number] B rand Name: ibuprofe n Send Method: E-Prescr ibed Sub s Allowed: subs OK Medic ationGen ericName : ibuprofe n Not Available Not Available Not Available dextroamp hetamine- amphetami ne 15 mg tablet TAKE 1 TABLET BY MOUTH EVERY DAY IN THE MORNING active Not Available Not Available No t Available omeprazol e 20 mg capsule,d elayed release 2020 active Medicati on ID: [id number] B rand Name: omeprazo le Send Method: [...] Not Available Not Available No t Available Latexo 5 mg-325 mg tablet 1-2 tablet by mouth 2015 active Medicati on ID: [id number] D uration Value: 7 Prescri bed By Name: Bernardo Gregorio M.D. Bra nd Name: Latexo Se nd Method: E-Prescr ibed Sub s Allowed: subs OK Medic ationGen ericName : Latexo Not Available Not Available Not Available fluticaso ne propionat e 50 mcg/actua tion nasal spray,jyoti pension 11/21 completed Medicati on ID: [id number] B rand Name: fluticas one propiona te Send Method: E-Prescr ibed Sub s Allowed: subs OK Medic ationGen ericName : fluticas one propiona te Medic ation ID: [id number] B rand Name: fluticas one propiona te Send Method: E-Prescr ibed Sub s Allowed: subs OK Medic ationGen ericName : fluticas one propiona te Not Available Not Available Not Available metformin ER 500 mg tablet,ex tended release 24 hr 11/21 completed Medicati on ID: [id number] D uration Value: 30 Brand Name: metformi n Send Method: E-Prescr ibed Sub s Allowed: subs OK Medic ationGen ericName : metformi n Medica tion ID: [id number] D uration Value: 30 Brand Name: metformi n Send Method: E-Prescr ibed Sub s Allowed: subs OK Medic ationGen ericName : metformi n Not Available Not Available Not Available dextroamp hetamine- amphetami ne 5 mg tablet 08/05 completed Medicati on ID: [id number] D uration Value: 28 Brand Name: dextroam phetamin e-amphet amine Se nd Method: E-Prescr ibed Sub s Allowed: subs OK Speci al Instruct ion: TAKE 1 TABLET BY MOUTH EVERY DAY Medi cationGe nericNam e: dextroam phetamin e-amphet amine Not Available Not Available Not Available naproxen 500 mg tablet 08/05 completed Medicati on ID: [id number] D uration Value: 30 Brand Name: naproxen [...] mcg tablet 08/05 completed Medicati on ID: [id number] Du ration Value: 28 Brand Name: Katie [...] as directed 11/21 completed Medicati on ID: [id number] D uration Value: 7 Brand Name: Ciprodex Send Method: E-Prescr ibed Sub s Allowed: subs OK Speci al Instruct ion: right ear Medi cationGe nericNam e: Ciprodex Medicat ion ID: [id number] D uration Value: 7 Brand Name: Ciprodex [...] aerosol inhaler 11/21 completed Medicati on ID: [id number] B rand Name: Flovent HFA Send Method: E-Prescr ibed Sub s Allowed: subs OK Medic ationGen ericName : Flovent HFA Medi cation ID: [id number] B rand Name: Flovent HFA Send Method: E-Prescr ibed Sub s Allowed: subs OK Medic ationGen ericName : Flovent HFA Not Available Not Available Not Available ProAir HFA 90 mcg/actua tion aerosol inhaler 11/21 completed Medicati on ID: [id number] D uration Value: 30 Brand Name: ProAir HFA Send Method: E-Prescr ibed Sub s Allowed: subs OK Medic ationGen ericName : ProAir HFA Medi cation ID: [id number] D uration Value: 30 Brand Name: ProAir [...] topical gel 11/21 completed Medicati on ID: [id number] B rand Name: diclofen ac sodium S end Method: E-Prescr ibed Sub s Allowed: subs OK Medic ationGen ericName : diclofen ac sodium M edicatio n ID: [id number] B rand Name: diclofen ac sodium S [...] Updated DateTime 11/22/2023 167.64 cm 33.1 kg/m2 63537.44 g Lynn Garrison MA - [facility] 11/22/2023 09:44:39 Social History None recorded. Functional [...] Note [id number] MARYSOL BENITES MD [facility] of [address] [address] 11/22/2023 09:33:52 11/22/2023 10:01:29 Obstructive sleep apnea syndrome 76207337 G47.33 Health Concerns Section Related Observation LastModified by Organization Detai ls LastModified Time None Recorded Concern Status LastModified by Organization Details LastModified Time None Recorded Advance Directives Directive None Recorded Payers Encounter Date Sequence Insurance Name Policy Number Policy Andrews Covered Member ID Andrews Member ID Guarantor Name 11/22/2023 1 [facility] (MEDICAID HMO) [id number] Caryn Severino [id number] Caryn Severino Notes Date Note Type Note [...] portion controlwork 3a-3:30p as [facility] [place] to change shift to 7p-7a [facility] and adenoidectomy, septoplasty, rhinoplasty (Dr Vazquez) 07/22/2012 [facility] 33.7AHI 1.4Interpretation of likely chronic sleep deprivation with increased delta wave sleep pattern and snoring MARYSOL BENITES MD [address] [place] [address], [place], [address], [place] - [facility] 11/22/2023 09:56:08 OBGyn Episode No OBEpisode recorded.
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
--- OUTSIDE RECORDS SUMMARY | 2024-06-26 18:21 | XMS_ITS | Clinical Summary ---
Author Organization [facility] lin Address [address] [place] [address] Care Team Providers Care Job Analyst Name Role Phone Pcp, No Primary Care Provider [phone] Social History Tobacco Use Types Packs/Day Years Used Date Smoking Tobacco: Never Assessed Comments Unknown Sex and Gender Information Value Date Recorded Sex Assigned at Not on file Legal Sex Female 11:51 AM EDT Gender Identity Not on file Sexual Orientation Not on file Last Filed Vital Signs Vital Sign Reading Time Taken Comments Blood Pressure - - Pulse 80 12/16/2020 3:24 PM EDT Temperature 36.1 ??C (97 ??F) 12/16/2020 3:24 PM EDT Respiratory Rate - - Oxygen Saturation 97% 12/16/2020 3:24 PM EDT Inhaled Oxygen Concentration - - Weight - - Height - - Body Mass Index - - Plan of Treatment Health Maintenance Due Date Last Done Comments Depression: Screening Annual ly using PHQ-2/9 in Adults 18 yrs or above (or HM Modifier)([facility]) 2001 Hepatitis C Virus Infection in Adolescents and Adults: Screening (or Modifier) ([facility]) 2001 [facility] Screening Reminder: Lisa barrios for all adults ([facility]) 2001 Tobacco Smoking Cessation: i n Adults excluding Women: Behavioral and Pharmacotherapy Interventions ([facility]) 2001 Lipid Screening: Once for Wo men aged 20 to 45 yrs ([facility]) 2003 Cervical Cancer Screenin 1-65 yrs of age (or Modifier) 2004 Cervical Cancer Screening: P ap every 3 yrs pts age 21-65 2004 Cervical Cancer: Pap Screeni ng with Modifier timing ([facility]) 2004 Cervical Cancer: hrHPV alone or with cotesting Pap for Pts 30-65yrs screening every 5yrs ([facility]) 2004 DTaP/Tdap/Td Vaccines ([facility]) (2 - Td or Tdap) 06/24/2022 06/24/2012 Flu Vaccination: Yearly for ages 18mos through 64 years (or Modifier)([facility]) 12/30/2023 COVID-19 Vaccine Screening: Initial Series and Booster Status ([facility]) ( - 2023- season) 2024 Zoster/Shingles Vaccine Seri es Screening: Adults aged 18+ yrs (or HM Modifiers)([facility]) (1 of 2) 2033 Pneumococcal Vaccination Scr eening: Pts 0-19 & 19-64 yrs of age ([facility]) Aged Out 05/17/2017 No longer eligible b ased on patient's age to complete this topic Medical Devices Not on file Insurance [facility] Care Teams Job Analyst Relationship Specialty Start Date End Date Pcp, Genny PCP - General Family Medicine 01/15/21
--- OUTSIDE RECORDS SUMMARY | 2024-06-26 18:22 | XMS_ITS | Clinical Summary ---
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 Name Role Phone Brigido Zavala MD Primary Care Provider [phone] Allergies Active Allergy Reactions Criticality Noted Date Comments Acetaminophen 05/17/2024 Caffeine 05/17/2024 Uwxapxvsoygy-Vgy-Zgrnicif ophen 11/27/2005 Diphenhydramine 05/17/2024 Diphenhydramine Hcl 05/17/2024 Ergotamine 05/17/2024 Ergotamine-Caffeine Headache,Nausea And Vomiting 01/30/2006 Nortriptyline 10/02/2014 Patient was feeling depressed Phenylephrine 05/17/2024 Pseudoephedrine Hcl 05/17/2024 Spironolactone 03/05/2021 Medications Medication Sig Dispensed Refills Start Date End Date Status propranoloL (INDERAL) 10 mg tablet Take 1 Tablet by mouth 3 times daily as needed for Other (Anxiety). 05/06/2022 Active amphetamine-dextroamph etamine (ADDERALL) 15 mg tablet Take 1 Tablet by mouth daily as needed for Other (Attention deficit). 05/06/2022 Active omeprazole (PriLOSEC) [address] capsule Take 1 Capsule by mouth daily. 01/15/2022 Active etanercept (EnbreL SureClick) 50 mg/mL (1 mL) injection pen Inject 50 mg into the skin every 7 days. 03/11/2021 Active ibuprofen (ADVIL,MOTRIN) 400 mg tablet Take 1-2 Tablets by mouth 3 times daily as needed for Pain. 10/29/2020 Active albuterol HFA (PROAIR HFA ; PROVENTIL HFA ; VENTOLIN HFA) 90 mcg/actuation inhaler Inhale 2 Puffs into the lungs every 4 hours as needed for Wheezing. 07/24/2020 Active Active Problems Problem Noted Date Diagnosed Date Cough 05/17/2024 Decreased hearing of both ears 05/17/2024 Dysphagia 05/17/2024 Globus sensation 05/17/2024 Postnasal drip 05/17/2024 Obesity (BMI 30.0-34.9) 11/29/2018 Obstructive sleep apnea 10/31/2018 Overview (05/17/2024): [facility] Home Sleep Apnea Test: Date 10/28/2018; Wt 189#; BMI 32; PATSY 6, AI 2; HI 4; Unclassified apneas 0; Obstructive apneas 11; Central apneas 1; Mixed apneas 0; hypopneas 32; average oxygen saturation 96% (lowest 87% without saturations <88% for 5% or more of study) - Obstructive Sleep Apnea - mild; mostly hypopneas with obstructive apneas; without sleep related hypoventilation by 2018 home polysomnogram. 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 Rx with methotrexate and cyclosporin: not that helpful. Rx with Enbrel (1998) age [age], did better. then off due to . Brief courses of Enbrel 2009 and 2013. She stopped on her own because she felt better. 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 She took INH for a month only Repeat PPD negative 09/18/2009 QuantiFERON testing negative in 2018 in 2019 Immunizations Name Administration Dates Next Due HPV, Quadrivalent 03/11/2010 Hepatitis B (Veoupvg-P-Djdat , Recombivax HB-Adult) 19yo and older 05/13/2004,12/13/2003,11/12/2003 Influenza Quadravalent, MDCK , 0.5ml, preservative free (Flucelvax) 6mo and older 03/05/2021 Influenza trivalent, with pr eservative (Fluzone; Afluria) 6mo and older 04/06/2017,06/24/2012 Meningococcal MCV4P 01/05/2018 Meningococcal Polysaccharide 11/06/2003 PPD Test 10/02/2014, 4,05/16/2012,09/16,08/07/2009,11/06/2003 AltraVax SARS-CoV-2 COVID-19, mRNA, LNP-S, preservative free 02/04/2021,01/14/2021 Pneumococcal polysaccharide 23 valent (Pneumovax 23) 2yo and older 05/17/2017 Td, Unspecified 11/06/2003 Tdap Tetanus diptheria acell ular pertussis (Boostrix; Adacel) 7yo and older 06/24/2012 Surgical History Surgery Date Site/Laterality Comments TYMPANOSTOMY TUBE PLACEMENT PROCEDURE: HISTORICAL PE TUBES; COMMENT: bilateral myringotomy tubes ADENOIDECTOMY PROCEDURE: HISTORICAL ADENOIDECTOMY TONSILLECTOMY PROCEDURE: HISTORICAL TONSILLECTOMY NASAL SEPTUM SURGERY 11/2016 PROCEDURE: DC REPAIR NASAL SEPTAL PERFORATIONS; COMMENT: and rhinoplasty CERVICAL BIOPSY W/ LOOP ELECTRODE EXCISION PROCEDURE: HISTORICAL CONE BIOPSY OTHER SURGICAL HISTORY PROCEDURE: DC TYMPNOPLSTY W/O MSTDC 1ST/REVJ W/OSICLE RECNSTJ OTHER SURGICAL HISTORY 2019 PROCEDURE: NASAL ENDO EUSTACHIAN TUBE OTHER SURGICAL HISTORY PROCEDURE: HISTORICAL UNSPECIFIED SURGERY; COMMENT: benign fibroid tumor removal from her ovaries Medical History Medical History Date Comments Tuberculin test reaction 11/27/2005 DX:Tube rculin test reaction; COMMENT: says the test was not Positve; she never took the drugs Allergic rhinitis, cause unspecified 11/27/2005 DX:Allergic rhinitis, cause unspecified 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/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 DX:Carcinoma in situ of cervix uteri; COMMENT: Charles bx 2006 at [place] Migraine, unspecified, witho ut mention of intractable migraine without mention of status migrainosus 06/15/2006 DX:Migraine, unspecified , without mention of intractable migraine without mention of status migrainosus Other and unspecified hyperlipidemia 07/26/2006 DX:Other and unspecified hyperlipidemia Unspecified asthma(493.90) DX:Un specified asthma(493.90); COMMENT: exercise induced since childhood Rheumatoid arthritis(714.0) 07/02/2008 DX:R heumatoid arthritis(714.0); COMMENT: Diagnosed as child at [facility] No care since adult. Decreased hearing of both ears D X:Decreased hearing of both ears Asthma 07/26/2006 DX:Asthma Dysphagia DX:Dysphagia Globus sensation DX:Globus sensa tion Cough DX:Cough Postnasal drip DX:Postnasal dri p Family History Medical History Relation Name Comments Other: ADHD Daughter and benign tumo rs Other: gout Father Other: lipomas Father Diabetes Maternal Grandfather Heart attack Maternal Grandfather Hyperlipidemia Maternal Grandfather Hypertension Maternal Grandfather Kidney cancer Maternal Grandfather Esophageal cancer Maternal Grandmother Kidney cancer Maternal Grandmother Coronary artery disease Mother Diabetes Mother Glaucoma Mother Hypertension Mother Other: CKD Mother Other: Rheumatoid arthritis Mother Other: bleeding disorder Mother Other: fibromyalgia Mother Other: hearing loss Mother Other: heart attack Mother Other: lupus Mother Thyroid disease Mother Hasimotothro iditis Other: nephew Other CKD Dementia Paternal Grandmother Diabetes Paternal Grandmother Hypertension Paternal Grandmother Other: Graves disease Sister 1 Other: anxiety Sister 1 Other: Migraine Sister 2 Asthma Sister 3 Other: hepatitis Uncle chronic Breast cancer Neg Hx Colon cancer Neg Hx Ovarian cancer Neg Hx Uterine cancer Neg Hx Relation Name Status Comments Brother Alive Daughter Alive Father Alive lipomas Maternal Grandfather Alive Maternal Grandmother Mother Alive fibro, HTN, RA, lupus, DM, thyroid disorder Other Paternal Grandfather Alive Paternal Grandmother Alive Sister 1 Alive Sister 2 Alive Sister 3 Alive Son Alive healthy Uncle Social History Tobacco Use Types Packs/Day Years Used Date Smoking Tobacco: Never Smokeless Tobacco: Never Alcohol Use Standard Drinks/Week Comments Yes 0 (1 standard drink = 0.6 oz pur e alcohol) Sex and Gender Information Value Date Recorded Sex Assigned at Not on file Gender Identity Not on file Sexual Orientation Not on file Obstetrics History Last Filed Vital Signs Vital Sign Reading Time Taken Comments Blood Pressure 112/74 01/15/2022 10:33 AM EDT Pulse 78 01/15/2022 10:33 AM EDT Temperature - - Respiratory Rate - - Oxygen Saturation - - Inhaled Oxygen Concentration - - Weight 87.1 kg (192 lb) 01/15/2022 10:33 AM EDT Height 162.6 cm (5' 4 ) 01/15/2022 10:33 AM EDT Body Mass Index 32.96 01/15/2022 10:33 AM EDT Plan of Treatment Health Maintenance Due Date Last Done Comments Breast Cancer Screening 1985 HPV Vaccines (2 - 3-dose series) 04/08/2010 03/11/2010 Pneumococcal Vaccine: Pediatrics (0 to 5 Years) and At-Risk Patients (6 to 64 Years) (2 of 2 - PCV) 05/17/2018 05/17/2017 COVID-19 Vaccine (3 - Pfizer risk series) 03/04/2021 02/04/2021, 01/14/2021 Depression Screening 05/04/2022 HIV Screening 05/04/2022 Social Influencers of Health Screening 05/04/2022 DTaP,Tdap,and Td Vaccines (3 - Td or Tdap) 06/24/2022 06/24/2012, 11/06/2003 Influenza Vaccine (#1) 2024 , 04/06/2017, 06/24/2012 Cervical Cancer Screening: HPV 05/31/2026 05/31/2021 Cholesterol Screening (Lipid Panel) 10/10/2026 10/10/2021 Hepatitis B Vaccines Completed 05/13/2004, 12/13/2003, 11/12/2003 Hepatitis C Screening Completed 06/27/2012 Meningococcal ACWY Vaccine Aged Out 01/05, 11/06/2003 No longer eligible based on patient's age to complete this topic HIB Vaccines Aged Out No longer eligi ble based on patient's age to complete this topic Hepatitis A Vaccines Aged Out No long er eligible based on patient's age to complete this topic IPV Vaccines Aged Out No longer eligi ble based on patient's age to complete this topic MMR Vaccines Aged Out No longer eligi ble based on patient's age to complete this topic RSV Immunization Patients Under 20 months Aged Out No longer eligible b ased on patient's age to complete this topic Varicella Vaccines Aged Out No longer eligible based on patient's age to complete this topic Procedures Procedure Name Priority Date/Time Associated Diagnosis Comments LIPID PANEL Routine 10/10/2021 HPV Routine 05/31/2021 HEPATITIS C SCREENING Routine 06/27/2012 from Last 3 Months or Most Recently Relevant to Health Maintenance Results * (ABNORMAL) Lipid panel (10/10/2021) Pathologist [facility] LDL/HDL Ratio 5(A) 0 - 4 Triglycerides 146 0 - 150 mg/dL Cholesterol 333(A) 0 - 200 mg/dL HDL 69 40 mg/dL LDL Cholesterol 235(A) 0 - 100 mg/dL Blood Venous blood specimen / Unknown Historical Provider LAB BLOOD ORDERAB LES * Cervical Cancer Screening: HPV (05/31/2021) Pathologist [facility] Cervical Cancer Screening: HPV No Interpretation , Abstracted Historical Provider MD ASHER Flores * Hepatitis C Screening (06/27/2012) Pathologist [facility] Hepatitis C Screening abstracted Historical Provider MD ASHER Flores from Last 3 Months or Most Recently Relevant to Health Maintenance Care Teams 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
== END 2024-06-26 13:39 | disposition home or self-care (01) ==
LOC: HO.XRAY 13:38
PROVIDERS: PCP Internal Medicine; Visit Provider Student in an Organized Health Care Education/Training Program
DX: M05.9 Rheumatoid arthritis with rheumatoid factor, unspecified (principal)
CPT/HCPCS: 36415; 72052; 73110; 73130; 73564; 73630; 80053; 85025; 85652; 86140

== ENCOUNTER → 2024-06-26 13:54 | Outpatient (BNV) | payer OTHER, SELFPAY | PROVIDERS: PCP Internal Medicine; Visit Provider Radiology Diagnostic Radiology | DX: M47.812 Spondylosis without myelopathy or radiculopathy, cervical region (principal); M05.9 Rheumatoid arthritis with rheumatoid factor, unspecified; M85.842 Other specified disorders of bone density and structure, left hand; M85.841 Other specified disorders of bone density and structure, right hand; M85.872 Other specified disorders of bone density and structure, left ankle and foot; M85.871 Other specified disorders of bone density and structure, right ankle and foot | CPT/HCPCS: 72052; 73110; 73130; 73564; 73630 ==